=== PATIENT | female | born 1960 | race Two or more races ===

== ENCOUNTER 2017-06-16 11:23 | Emergency (ER) | payer OTHER ==
[~2017-06-16] VITALS: Ht 160 cm; Wt 95.3 kg
[2017-06-16 12:16] LABS: BASOPHILS % (AUTO) 1.5 % (0.0-2.0); EOSINOPHILS % (AUTO) 0.8 % (0.0-3.0); LYMPHOCYTES % (AUTO) 27.4 % (20.0-45.0); MEAN CORPUSCULAR HEMOGLOBIN 29.1 PG (27.0-31.0); MEAN CORPUSCULAR HGB CONC 32.1 G/DL (32.0-36.0); MEAN CORPUSCULAR VOLUME 91 FL (80-99); MEAN PLATELET VOLUME 7.6 FL (6.5-10.1); MONOCYTES % (AUTO) 8.2 % (1.0-10.0); NEUTROPHILS % (AUTO) 62.2 % (45.0-75.0); PLATELET COUNT 207 K/UL (150-450)
[2017-06-16 12:21] LABS: APPEARANCE,URINE CLEAR; KETONES,URINE NEGATIVE (NEGATIVE); LEUKOCYTE ESTERASE ,URINE 1+ (NEGATIVE); NITRITE,URINE NEGATIVE (NEGATIVE); PH,URINE 8 (4.5-8.0); PROTEIN,URINE 1+ (NEGATIVE); UROBILINOGEN,URINE 1 MG/DL (0.0-1.0)
[2017-06-16 12:31] LABS: PROTHROMBIN TIME 10.7 SEC (9.30-11.50)
[2017-06-16 12:36] LABS: ALANINE AMINOTRANSFERASE 53 U/L (3-33); ANION GAP 11 (5-15); ASPARTATE AMINO TRANSFERASE 57 U/L (5-40); CALCIUM 9.7 mg/dL (8.6-10.2); CARBON DIOXIDE 28 mEQ/L (20-30); CHLORIDE 97 mEQ/L (98-107); CREATININE 0.8 mg/dL (0.5-0.9); GLOMERULAR FILTRATION RATE > 60 mL/min (>60); HEMOLYSIS 4; LIPASE 24 U/L (< 60); POTASSIUM 3.1 mEQ/L (3.4-4.9); SODIUM 136 mEQ/L (135-145); TOTAL PROTEIN 8.3 g/dL (6.6-8.7)
[2017-06-16 12:42] LABS: BACTERIA,URINE FEW /HPF; SQUAMOUS EPITHELIAL CELL,UR OCCASIONAL /LPF (NONE/OCC); WBC,URINE 0-2 /HPF (0 - 2)
[2017-06-16] MEDS ORDERED: ATENOLOL25 MG ORAL (12:52)
[2017-06-16] MEDS ORDERED: AMLODIPINE BESYL5 MG ORAL (12:52)
[2017-06-16] MEDS ORDERED: PANTOPRAZOLE SO40 MG ORAL (12:52)
[2017-06-16] MEDS ORDERED: [UNRECOGNIZED DRUG - OTHER] PO (12:53)
[2017-06-16] MEDS ORDERED: ALBUTEROL PO (12:53)
[2017-06-16 13:15] VITALS: BP 155/72
--- NOTE | 2017-06-16 13:19 | Emergency Room Report ---
History of Present Illness General Chief Complaint: Abdominal Pain Source: Patient Present Illness HPI 57-year-old female with history of diabetes and hypertension, presenting with 2 days of bloody diarrhea and generalized abdominal pain. Patient states some nausea but no vomiting. Patient states within 3-4 episodes of bloody diarrhea, brown stool mixed with bright red blood. There is no pain notification. Patient denies any fever chills chest pain shortness of breath or syncopal episodes. Patient states that her last colonoscopy was 3 years ago which showed polyps. Patient states that she takes baby aspirin however not every day. Allergies: Coded Allergies: No Known Allergies (Unverified , 06/16/17) Patient History Past Medical History: see triage record Past Surgical History: none Pertinent Family History: none Last Menstrual Period: 5 years ago Now: No Reviewed Nursing Documentation: PMH: Agreed, PSxH: Agreed Nursing Documentation-PMH Past Medical History: No History, Except For Hx Cardiac Problems: No Hx Hypertension: Yes Hx Pacemaker: No Hx Asthma: Yes Hx COPD: No Hx Diabetes: Yes Hx Cancer: No Hx Gastrointestinal Problems: Yes Hx Dialysis: No History Of Psychiatric Problem: Yes - deperession Hx Neurological Problems: No Hx Cerebrovascular Accident: No Hx Seizures: No Review of Systems All Other Systems: negative except mentioned in HPI Physical Exam Vital Signs Date Time Temp Pulse Resp B/P (MAP) Pulse Ox O2 Delivery O2 Flow Rate FiO2 06/16/17 11:30 98.4 68 15 177/76 96 Room Air Sp02 EP Interpretation: reviewed, normal General Appearance: normal inspection, no apparent distress, alert, GCS 15, non -toxic, other - appears mildly dehydrated Head: normocephalic, atraumatic Eyes: bilateral eye normal inspection, bilateral eye PERRL, bilateral eye EOMI ENT: normal ENT inspection, normal pharynx, normal voice, moist mucus membranes Neck: normal inspection, full range of motion, supple Respiratory: normal inspection, lungs clear, normal breath sounds, no respiratory distress, no retraction, no wheezing, speaking full sentences, chest symmetrical Cardiovascular #1: normal inspection, regular rate, rhythm, no edema, normal capillary refill Cardiovascular #2: 2+ radial (R), 2+ radial (L) Gastrointestinal: normal inspection, non tender, soft, non-distended, no guarding, other - nontender all quadrants Musculoskeletal: normal inspection, back normal, normal range of motion, non- tender Neurologic: normal inspection, alert, oriented x3, responsive, motor strength/ tone normal, sensory intact, normal gait, speech normal Psychiatric: normal inspection, judgement/insight normal, memory normal Skin: normal inspection, normal color, no rash, warm/dry, normal turgor Medical Decision Making Diagnostic Impression: Primary Impression: Bloody diarrhea Additional Impressions: Lower GI bleed Hypokalemia ER Course 57 yo female with bloody diarrhea and abdominal pain Differential Diagnosis: Lower GI bleed Gastritis, gastroenteritis, colitis, appendicitis, diverticulitis, diverticulosis, UTI/pyelo At this time abdomen is soft nontender, not likely to have acute intra- abdominal surgical pathology, will hold CT for now. ciprofloxacin given for possible bacterial diarrhea Plan: Basic labs, ua, coags, ekg Zofran, IVF ER course: Patient has been monitored during ED stay, HD stable. Patient's blood pressure has remained within normal limits. H&H is within normal limits and no transfusion will be done at this time repeat abdominal examinations reveal nontender abdomen, we'll not pursue CT at this time Disposition: Patient is to be admitted to telemetry for lower GI bleeding. Patient will be transferred to outside hospital to to insurance issue. Discussed with the receiving doctor . Patient is hemodynamically stable and is stable for transfer Please note that this Emergency Department Report was dictated using Project WBSplate painter apprentice technology software, occasionally this can lead to erroneous entry secondary to interpretation by the dictation equipment. Laboratory Tests Test 06/16/17 12:00 White Blood Count 7.0 K/UL (4.8-10.8) Red Blood Count 4.70 M/UL (4.20-5.40) Hemoglobin 13.7 G/DL (12.0-16.0) Hematocrit 42.5 % (37.0-47.0) Mean Corpuscular Volume 91 FL (80-99) Mean Corpuscular Hemoglobin 29.1 PG (27.0-31.0) Mean Corpuscular Hemoglobin Concent 32.1 G/DL (32.0-36.0) Red Cell Distribution Width 13.0 % (11.6-14.8) Platelet Count 207 K/UL (150-450) Mean Platelet Volume 7.6 FL (6.5-10.1) Neutrophils (%) (Auto) 62.2 % (45.0-75.0) Lymphocytes (%) (Auto) 27.4 % (20.0-45.0) Monocytes (%) (Auto) 8.2 % (1.0-10.0) Eosinophils (%) (Auto) 0.8 % (0.0-3.0) Basophils (%) (Auto) 1.5 % (0.0-2.0) Prothrombin Time 10.7 SEC (9.30-11.50) Prothrombin Time INR 1.0 (0.9-1.1) PTT 28 SEC (23-33) Urine Color Yellow Urine Appearance Clear Urine pH 8 (4.5-8.0) Urine Specific [place] 1.015 (1.005-1.035) Urine Protein 1+ (NEGATIVE) H Urine Glucose (UA) Negative (NEGATIVE) Urine Ketones Negative (NEGATIVE) Urine Occult Blood 4+ (NEGATIVE) H Urine Nitrite Negative (NEGATIVE) Urine Bilirubin Negative (NEGATIVE) Urine Urobilinogen 1 MG/DL (0.0-1.0) H Urine Leukocyte Esterase 1+ (NEGATIVE) H Urine RBC 10-15 /HPF (0 - 2) H Urine WBC 0-2 /HPF (0 - 2) Urine Squamous Epithelial Cells Occasional /LPF Urine Bacteria Few /HPF (NONE) Sodium Level 136 mEQ/L (135-145) Potassium Level 3.1 mEQ/L (3.4-4.9) L Chloride Level 97 mEQ/L (98-107) L Carbon Dioxide Level 28 mEQ/L (20-30) Anion Gap 11 (5-15) Blood Urea Nitrogen 8 mg/dL (7-23) Creatinine 0.8 mg/dL (0.5-0.9) Estimate Glomerular Filtration Rate > 60 mL/min (>60) Glucose Level 147 mg/dL (74-106) H Calcium Level 9.7 mg/dL (8.6-10.2) Total Bilirubin 1.0 mg/dL (0.0-1.2) Aspartate Amino Transferase (AST) 57 U/L (5-40) H Alanine Aminotransferase (ALT) 53 U/L (3-33) H Alkaline Phosphatase 137 U/L (35-104) H Total Protein 8.3 g/dL (6.6-8.7) Albumin 4.2 g/dL (3.5-5.2) Globulin 4.1 g/dL Albumin/Globulin Ratio 1.0 (1.0-2.7) Lipase 24 U/L (< 60) EKG Diagnostic Results Rate: normal Rhythm: NSR ST Segments: other - prolonged QT ASA given to the pt in ED: No Rhythm Strip Diag. Results EP Interpretation: yes Rate: 70 Rhythm: NSR, no PVC's, no ectopy Last Vital Signs Date Time Temp Pulse Resp B/P (MAP) Pulse Ox O2 Delivery O2 Flow Rate FiO2 06/16/17 11:30 98.4 68 15 177/76 96 Room Air Disposition: XFER SHT-TRM HOSP Condition: Serious Referrals: [facility],REFERR[facility] (PCP) Taya Albarado M.D. Jun 16, 2017 13:19
[2017-06-16] MEDS ORDERED: Ciprofloxacin 500mg tab ORAL ONE (13:30)
[2017-06-16 14:35] VITALS: BP 161/80
[2017-06-16 14:50] VITALS: BP 162/78
== END 2017-06-16 14:58 | disposition short-term general hospital (02) ==
LOC: EDBEDREQSVC 12:34 → EMR 12:41
DX: K92.2 Gastrointestinal hemorrhage, unspecified (principal); E87.6 Hypokalemia; I10 Essential (primary) hypertension; J45.909 Unspecified asthma, uncomplicated; F32.9 Major depressive disorder, single episode, unspecified
CPT/HCPCS: 36415; 80053; 81003; 83690; 85025; 85610; 85730; 86850; 86900; 86901; 93005; 99285; J8499

== ENCOUNTER 2018-03-20 13:19 | Emergency (ER) | payer OTHER ==
[~2018-03-20] VITALS: Ht 162.6 cm; Wt 86.2 kg
[~2018-03-20 13:19] MED LIST: ALBUTEROL PO; AMLODIPINE BESYL5 MG ORAL; ATENOLOL25 MG ORAL; PANTOPRAZOLE SO40 MG ORAL; [UNRECOGNIZED DRUG - OTHER] PO
[2018-03-20 14:18] VITALS: BP 149/73
--- NOTE | 2018-03-20 14:44 | Emergency Room Report ---
History of Present Illness General Chief Complaint: Skin Rash/Abscess Source: Patient, Medical Record Present Illness HPI 58-year-old female presents emergency department complaining of persistent rash generalized on her face 1 month. Patient reports onset was after having nuclear medicine scan over a month ago. Patient reports some mild itching otherwise no other symptoms. Patient states that she also had a itchy lesion on her scalp which responded well to ketoconazole shampoo. Denies lesions/ rashes elsewhere on the body. Denies new medications or body washes or creams. Denies swelling of the lips, tongue , throat or airway. Denies wheezing, or shortness of breath. Denies recent travel, recent illness or ill contacts. denies blisters, oral lesions, or sloughing of the skin. She denies fevers or chills. Allergies: Coded Allergies: No Known Allergies (Unverified , 06/16/17) Patient History Past Medical History: see triage record Past Surgical History: none Pertinent Family History: none Reviewed Nursing Documentation: PMH: Agreed; PSxH: Agreed Nursing Documentation-PMH Past Medical History: No History, Except For Hx Hypertension: Yes Hx Diabetes: Yes Review of Systems All Other Systems: negative except mentioned in HPI Physical Exam Vital Signs Date Time Temp Pulse Resp B/P (MAP) Pulse Ox O2 Delivery O2 Flow Rate FiO2 03/20/18 13:39 98.1 56 18 149/73 95 Room Air 98.1 Sp02 EP Interpretation: reviewed, normal General Appearance: no apparent distress, alert, GCS 15, non-toxic Head: normocephalic, atraumatic ENT: hearing grossly normal, normal voice, other - No swelling of the lips or tongue Neck: full range of motion Respiratory: chest non-tender, lungs clear, normal breath sounds, no respiratory distress, no wheezing, speaking full sentences Cardiovascular #1: regular rate, rhythm, normal capillary refill Musculoskeletal: back normal, gait/station normal, normal range of motion, non- tender Neurologic: alert, oriented x3, responsive, motor strength/tone normal, sensory intact, speech normal, grossly normal Psychiatric: judgement/insight normal Skin: normal color, warm/dry, well hydrated, rash - Discrete scant erythematous papules that elham located across the nasal bridge and zygomatic bones. No blisters, vesicles or pustules noted. Annular hyperpigmented lesion 1 cm in diameter on the right parietal scalp. Lymphatic: no adenopathy Medical Decision Making PA Attestation Dr. Mar is my supervising Physician whom patient management has been discussed with. Diagnostic Impression: Primary Impression: Rash and other nonspecific skin eruption ER Course 58-year-old female presents emergency department complaining of persistent rash generalized on her face 1 month. Patient reports onset was after having nuclear medicine scan over a month ago. Patient reports some mild itching otherwise no other symptoms. Patient states that she also had a itchy lesion on her scalp which responded well to ketoconazole shampoo. Denies lesions/ rashes elsewhere on the body. Denies new medications or body washes or creams. Denies swelling of the lips, tongue , throat or airway. Denies wheezing, or shortness of breath. Denies recent travel, recent illness or ill contacts. denies blisters, oral lesions, or sloughing of the skin. She denies fevers or chills. states she's had the rash on her face for 1 month she notes that onset was after having nuclear medicine testing done. Ddx considered but are not limited to cellulitis, scabies, shingles, varicella, dermatitis, urticaria, eczema, tinea, viral exanthem, SJS Vital signs: are WNL, pt. is afebrile H&PE are most consistent with nonspecific rash, most likely rosecea. No evidence to suggest significant allergic reaction, impending airway compromise or anaphylaxis. Annular lesion on the scalp is consistent with appearance of fungal infection. ORDERS: none required at this time, the diagnosis is clinical ED INTERVENTIONS: None required at this time. DISCHARGE: At this time pt. is stable for d/c to home. Will provide printed patient care instructions, and any necessary prescriptions. Care plan and follow up instructions have been discussed with the patient prior to discharge. Last Vital Signs Date Time Temp Pulse Resp B/P (MAP) Pulse Ox O2 Delivery O2 Flow Rate FiO2 03/20/18 14:18 98.1 56 18 149/73 95 Room Air 98.1 Disposition: HOME, SELF-CARE Condition: Stable Scripts Diphenhydramine Hcl (BENADRYL ALLERGY) 25 Mg Tablet 25 MG PO Q6HR, #10 TAB Prov: Sharda Holt 03/20/18 Ketoconazole (NIZORAL) 120 Ml Shampoo 1 APPLIC TP DAILY, #120 ML Prov: Sharda Holt 03/20/18 Azelaic Acid (AZELEX) 30 Gm Cream..g. 1 APPLIC TP BID, #30 GM Prov: Sharda Holt 03/20/18 Patient Instructions: Rash Additional Instructions: Take medications as directed. Follow up with a FOREST SCIENCE PROFESSOR in 3-5 days, even if your symptoms have resolved. --Please review list of primary care clinics, if you do not already have a primary care provider Return sooner to ED if new symptoms occur, or current symptoms become worse. Do not drink alcohol, drive, or operate heavy machinery while taking Benadryl as this may cause drowsiness. - Please note that this Emergency Department Report was dictated using [employer] supervisor technology software, occasionally this can lead to erroneous entry secondary to interpretation by the dictation equipment. Sharda Holt Mar 20, 2018 14:44
[2018-03-20] MEDS ORDERED: BENADRYL ALLERG25 M1 PO (14:47)
[2018-03-20] MEDS ORDERED: NIZORAL120 ML TP (14:47)
[2018-03-20] MEDS ORDERED: AZELEX30 GM TP (14:47)
[2018-03-20 14:56] VITALS: BP 150/73
== END 2018-03-20 15:00 | disposition home or self-care (01) ==
LOC: EMR 14:56 → MERGE 14:56 → EMR 15:00
DX: R21 Rash and other nonspecific skin eruption (principal); I10 Essential (primary) hypertension; E11.9 Type 2 diabetes mellitus without complications
CPT/HCPCS: 99284

== ENCOUNTER 2018-04-03 13:50 | Emergency (ER) | payer OTHER ==
[~2018-04-03] VITALS: Ht 157.5 cm; Wt 81.6 kg
[~2018-04-03 13:50] MED LIST changes: +AZELEX30 GM TP; +BENADRYL ALLERG25 M1 PO; +NIZORAL120 ML TP
[2018-04-03] MEDS ORDERED: RANITIDINE HCL150 MG ORAL (14:32)
[2018-04-03] MEDS ORDERED: ONDANSETRON ODT4 MG BC (14:32)
[2018-04-03 14:44] VITALS: BP 148/79
--- NOTE | 2018-04-03 15:52 | Emergency Room Report ---
History of Present Illness General Chief Complaint: Nausea, Vomiting, and Diarrhea Source: Patient, Medical Record Present Illness HPI 58-year-old female presents ED complaining of abdominal pain with nausea and vomiting 2 days. History of gastritis. States that she ran out of her medications. Does not recall the medication name. Pain is epigastric, burning , 8 out of 10, nonradiating. Denies chest pain or shortness of breath. Denies fevers or chills. Denies dysuria or hematuria. No other aggravating relieving factors. Denies any other associated symptoms Allergies: Coded Allergies: No Known Allergies (Unverified , 06/16/17) Patient History Past Medical History: DM, HTN Past Surgical History: none Pertinent Family History: none Social History: Denies: smoking, alcohol use, drug use Now: No Immunizations: UTD Reviewed Nursing Documentation: PMH: Agreed; PSxH: Agreed Nursing Documentation-PMH Past Medical History: No History, Except For Hx Cardiac Problems: No Hx Hypertension: Yes Hx Pacemaker: No Hx Asthma: Yes Hx COPD: No Hx Diabetes: Yes Hx Cancer: No Hx Gastrointestinal Problems: Yes Hx Dialysis: No Hx Neurological Problems: No Hx Cerebrovascular Accident: No Hx Seizures: No Review of Systems All Other Systems: negative except mentioned in HPI Physical Exam Vital Signs Date Time Temp Pulse Resp B/P (MAP) Pulse Ox O2 Delivery O2 Flow Rate FiO2 04/03/18 14:00 98.3 58 18 140/71 98 Room Air 98.2 Sp02 EP Interpretation: reviewed, normal General Appearance: no apparent distress, alert, GCS 15, non-toxic Head: normocephalic Eyes: bilateral eye normal inspection, bilateral eye PERRL ENT: normal ENT inspection Neck: normal inspection Respiratory: chest non-tender, lungs clear, normal breath sounds, speaking full sentences Cardiovascular #1: regular rate, rhythm, no edema Gastrointestinal: normal bowel sounds, soft, non-distended, no guarding, no rebound, tenderness - epigastric Rectal: deferred Genitourinary: no CVA tenderness Musculoskeletal: normal inspection Neurologic: alert, oriented x3, responsive, motor strength/tone normal, sensory intact, speech normal Psychiatric: normal inspection Skin: normal inspection Lymphatic: normal inspection Medical Decision Making Diagnostic Impression: Primary Impression: Gastritis Qualified Codes: K29.00 - Acute gastritis without bleeding ER Course Hospital Course 58-year-old F presents to ED with epigastric pain with N/V. differential diagnosis: gastritis, SBO, cholecystits Clinical course Patient placed on stretcher. On cardiac cath lab manager. After initial history, exam reveals a middle-aged female in no acute distress. Abdomen soft. There is some mild tenderness to the epigastric region. No guarding or rebound. No flank pain. Vital stable. Good capillary refill. Mucous membranes moist. Patient given Pepcid and Zofran in ED I feel this is a highly complex case requiring extensive working including EKG/ Rhythm strip, Xray/CT/US, Blood/urine lab work, repeat exams while in ED, and administration of strong opiates/narcotics for pain control, admission to hospital or close patient follow up. Diagnosis - gastritis Stable and discharged to home with prescriptions for Zantac, zofran. Followup with PMD. Return to ED if symptoms recur or worsen Last Vital Signs Date Time Temp Pulse Resp B/P (MAP) Pulse Ox O2 Delivery O2 Flow Rate FiO2 04/03/18 14:44 98.9 61 18 148/79 95 Room Air 98.9 Status: improved Disposition: HOME, SELF-CARE Condition: Stable Scripts Ondansetron Odt* (ZOFRAN ODT*) 4 Mg Tab.rapdis 4 MG BC EVERY 6 HOURS PRN for Nausea & Vomiting, #20 TAB 0 Refills Prov: Db Rios MD 04/03/18 Ranitidine Hcl* (ZANTAC*) 150 Mg Tablet 150 MG ORAL TWICE A DAY, #30 TAB Prov: Db Rios MD 04/03/18 Referrals: [facility],REFERRING (PCP) Patient Instructions: Gastritis, Adult, [id number] Db Rios MD Apr 03, 2018 15:52
== END 2018-04-03 14:43 | disposition home or self-care (01) ==
LOC: EMR 14:28
DX: K29.70 Gastritis, unspecified, without bleeding (principal); I10 Essential (primary) hypertension; J45.909 Unspecified asthma, uncomplicated; E11.9 Type 2 diabetes mellitus without complications
CPT/HCPCS: 99284; J2405

== ENCOUNTER 2018-10-15 14:21 | Emergency (ER) | payer OTHER ==
[~2018-10-15] VITALS: Ht 162.6 cm; Wt 86.2 kg
[~2018-10-15 14:21] MED LIST changes: +ONDANSETRON ODT4 MG BC; +RANITIDINE HCL150 MG ORAL
[2018-10-15 14:31] VITALS: BP 128/67
--- NOTE | 2018-10-15 14:31 | NUR ---
ED Nurse Note: PT WALKED IN TO ER TODAY FROM HOME. AOX4. PT C/O PRODUCTIVE COUGH X 8 DAYS. PT DENIES FEVER OR NASAL CONGESTION. PT DENIES SOB. LUNG SOUNDS CLEAR IN ALL LOBES. NO SIGNS OF RESPIRATORY DISTRESS.
[2018-10-15] MEDS ORDERED: Ipratropium 0.02% Inh Soln 2.5ml UD HHN ONE (14:45)
[2018-10-15] MEDS ORDERED: Albuterol ud Inhalation HHN ONE (14:45)
--- NOTE | 2018-10-15 15:18 | Emergency Room Report ---
History of Present Illness General Chief Complaint: Upper Respiratory Illness Source: Patient Present Illness HPI Patient presents with 8 days of upper respiratory infection symptomatology including cough wheezing sore throat, muscle aches. She may have had fevers at home. She denies any nausea vomiting diarrhea. There is no dysuria. She's been using her inhaler. She has not taken any medication to control fevers today. She had a flu shot. No headache. She denies pain at this time. History of hypertension. No chest pain, palpitations, nausea, vomiting, diarrhea, abdominal pain, depression, visual changes, headache. 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 Last Menstrual Period: menopause Reviewed Nursing Documentation: PMH: Agreed; PSxH: Agreed Nursing Documentation-PMH Past Medical History: No History, Except For Hx Cardiac Problems: No Hx Hypertension: Yes Hx Pacemaker: No Hx Asthma: Yes Hx COPD: No Hx Diabetes: Yes Hx Cancer: No Hx Gastrointestinal Problems: Yes Hx Dialysis: No Hx Neurological Problems: No Hx Cerebrovascular Accident: No Hx Seizures: No Review of Systems All Other Systems: negative except mentioned in HPI Physical Exam Vital Signs Date Time Temp Pulse Resp B/P (MAP) Pulse Ox O2 Delivery O2 Flow Rate FiO2 10/15/18 14:27 98.2 61 18 133/68 95 Room Air Sp02 EP Interpretation: reviewed, normal General Appearance: well appearing, no apparent distress, GCS 15 Head: normocephalic, atraumatic Eyes: bilateral eye normal inspection, bilateral eye PERRL ENT: hearing grossly normal, normal voice, pharyngeal erythema Neck: full range of motion, supple Respiratory: no respiratory distress, speaking full sentences, wheezing, expiration Cardiovascular #1: regular rate, rhythm Cardiovascular #2: 2+ radial (R) Gastrointestinal: normal inspection Genitourinary: no CVA tenderness Musculoskeletal: no calf tenderness Neurologic: alert, oriented x3, normal gait, grossly normal Psychiatric: mood/affect normal Skin: no rash Medical Decision Making Diagnostic Impression: Primary Impression: Exacerbation of asthma Qualified Codes: J45.31 - Mild persistent asthma with (acute) exacerbation Additional Impression: Upper respiratory infection Qualified Codes: J06.9 - Acute upper respiratory infection, unspecified ER Course Patient presents with wheezes cough and possible fever. She has a history of asthma. I differential includes influenza, asthma exacerbation, viral upper respiratory infection. Throat exam is against strep. She'll be treated with albuterol and Atrovent here. Due to the fact it's been 8 days of Tamiflu is not indicated. Influenza swab negative. Patient is improved after breathing treatment. We discussed aftercare. She has an albuterol inhaler which she will use. Patient stable for outpatient observation and treatment. Last Vital Signs Date Time Temp Pulse Resp B/P (MAP) Pulse Ox O2 Delivery O2 Flow Rate FiO2 10/15/18 15:31 98.3 65 17 131/69 99 Room Air Status: improved Disposition: HOME, SELF-CARE Condition: Improved Scripts Guaifenesin/Codeine Phos* (ROBITUSSIN AC*) 118 Ml Liquid 5 ML ORAL Q6H PRN for For Cough, #90 ML 0 Refills Prov: Arden Hernandez MD 10/15/18 Prednisone* (PREDNISONE*) 20 Mg Tablet 40 MG ORAL DAILY, #6 TAB Prov: Arden Hernandez MD 10/15/18 Arden Hernandez MD Oct 15, 2018 15:18
[2018-10-15] MEDS ORDERED: PREDNISONE20 MG ORAL (15:21)
[2018-10-15] MEDS ORDERED: GUAIFENESIN-CO118 M1 ORAL (15:21)
[2018-10-15 15:31] VITALS: BP 131/69
--- NOTE | 2018-10-15 15:32 | NUR ---
ER Nurse Note: PT SITTING PEACEFULLY IN CHAIR IN NAD. AOX4. PRESCRIPTIONS AND DISCHARGE PAPERWORK EXPLAINED TO PT. PT VERBALIZES UNDERSTANDING AND DENIES ANY QUESTIONS AT THIS TIME. PRESCRIPTIONS AND DISCHARGE PAPERWORK GIVEN TO PT AND ID WRISTBAND REMOVED. PT WALKED OUT OF ER WITH STEADY GAIT WITH ALL BELONGINGS.
== END 2018-10-15 15:30 | disposition home or self-care (01) ==
LOC: EMR 14:57
DX: J45.31 Mild persistent asthma with (acute) exacerbation (principal); J06.9 Acute upper respiratory infection, unspecified; I10 Essential (primary) hypertension; J45.909 Unspecified asthma, uncomplicated; E11.9 Type 2 diabetes mellitus without complications
CPT/HCPCS: 86710; 94640; 94664; 99284

== ENCOUNTER 2018-11-05 12:26 | Emergency (ER) | payer OTHER ==
[~2018-11-05] VITALS: Ht 162.6 cm; Wt 90.7 kg
[~2018-11-05 12:26] MED LIST changes: +GUAIFENESIN-CO118 M1 ORAL; +PREDNISONE20 MG ORAL
[2018-11-05 13:45] VITALS: BP 154/76
--- NOTE | 2018-11-05 13:45 | NUR ---
ED Nurse Note: PT WALKED IN TO ER TODAY FROM HOME. AOX4. PT C/O REDNESS TO RIGHT EYE X 5 DAYS AGO. PT C/O MINIMAL PAIN, 1/10 AND SOME ITCHING. SCLERA APPEARS RED BUT NO DISCHARGE. PT DENIES ANY VISION CHANGES. VA OD: 20/50- VA OS: 20/40-
--- NOTE | 2018-11-05 13:53 | Emergency Room Report ---
History of Present Illness General Chief Complaint: Eye Problems Source: Patient Present Illness HPI 58-year-old female with no significant past medical history here complaining of minimal pain and pruritus in the right eye 3 days with copious amount of yellow discharge. Patient denies eye trauma, blurred vision, and pain in her. Orbital area. Denies all other URI symptoms, fever or chills. Genitourinary the pain 2 out of 10. She uses a lot of eye makeup aand denied photophobia Allergies: Coded Allergies: No Known Allergies (Unverified , 06/16/17) Patient History Past Medical History: see triage record Past Surgical History: unable to obtain Pertinent Family History: none Last Menstrual Period: na Now: No Reviewed Nursing Documentation: PMH: Agreed; PSxH: Agreed Nursing Documentation-PMH Past Medical History: No History, Except For Hx Cardiac Problems: No Hx Hypertension: Yes Hx Pacemaker: No Hx Asthma: Yes Hx COPD: No Hx Diabetes: Yes Hx Cancer: No Hx Gastrointestinal Problems: Yes Hx Dialysis: No Hx Neurological Problems: No Hx Cerebrovascular Accident: No Hx Seizures: No Review of Systems All Other Systems: negative except mentioned in HPI Physical Exam Vital Signs Date Time Temp Pulse Resp B/P (MAP) Pulse Ox O2 Delivery O2 Flow Rate FiO2 11/05/18 12:44 97.9 54 18 166/75 98 Room Air Sp02 EP Interpretation: reviewed, normal General Appearance: normal inspection, well appearing Head: normocephalic Eyes: right eye other - bacterial conjunctivitis with copious amount of yellow discharge in the right eye, no corneal ulcer observed; bilateral eye PERRL ENT: normal ENT inspection, hearing grossly normal, normal pharynx Neck: normal inspection, full range of motion, supple Respiratory: normal inspection, chest non-tender, lungs clear, no wheezing Cardiovascular #1: normal inspection, regular rate, rhythm, no murmur Gastrointestinal: normal inspection, non tender, soft Rectal: deferred Genitourinary: deferred Musculoskeletal: normal inspection, back normal, digits/nails normal Neurologic: normal inspection, alert, oriented x3 Psychiatric: normal inspection, judgement/insight normal, memory normal Skin: normal inspection, normal color, no rash, warm/dry Lymphatic: normal inspection, no adenopathy Medical Decision Making PA Attestation all diagnosis and treatment plans were reviewed and discussed with my supervising physician Dr. Rios Diagnostic Impression: Primary Impression: Bacterial conjunctivitis ER Course 58-year-old female with no significant past medical history here complaining of minimal pain and pruritus in the right eye 3 days with copious amount of yellow discharge. Patient denies eye trauma, blurred vision, and pain in her. Orbital area. Denies all other URI symptoms, fever or chills. Genitourinary the pain 2 out of 10. She uses a lot of eye makeup aand denied photophobia Ddx considered but are not limited to bacterial conjunctivitis, corneal ulcer, allergic conjunctivitis Vital signs: are WNL, pt. is afebrile H&PE are most consistent with bacterial conjunctivitis ORDERS:ofloxacin eyedrops, loratadine ED INTERVENTIONS: None required at this time. DISCHARGE: At this time pt. is stable for d/c to home. Will provide printed patient care instructions, and any necessary prescriptions. Care plan and follow up instructions have been discussed with the patient prior to discharge. avoid wearing eye makeup, change pillowcases, follow with an machining manager if symptoms continue Last Vital Signs Date Time Temp Pulse Resp B/P (MAP) Pulse Ox O2 Delivery O2 Flow Rate FiO2 11/05/18 12:44 97.9 54 18 166/75 98 Room Air Disposition: HOME, SELF-CARE Condition: Stable Scripts Loratadine (LORATADINE) 10 Mg Tablet 10 MG PO DAILY, #20 TAB Prov: Sam Burgos 11/05/18 Ofloxacin (Ofloxacin) 5 Ml Drops 2 DROP OP QID, #5 ML Prov: Sam Burgos 11/05/18 Patient Instructions: Bacterial Conjunctivitis, [id number] Sam Burgos Nov 05, 2018 13:53
[2018-11-05] MEDS ORDERED: OFLOXACIN10 ML OP (13:56)
[2018-11-05] MEDS ORDERED: LORATADINE10 M2 PO (13:56)
[2018-11-05 14:12] VITALS: BP 148/74
--- NOTE | 2018-11-05 14:13 | NUR ---
ED Nurse Note: PT SITTING PEACEFULLY IN CHAIR IN NAD. AOX4. PRESCRIPTIONS AND DISCHARGE PAPERWORK EXPLAINED TO PT. PT VERBALIZES UNDERSTANDING AND ALL QUESTIONS ANSWERED. PRESCRIPTIONS AND DISCHARGE PAPERWORK GIVEN TO PT AND ID WRISTBAND REMOVED. PT WALKED OUT OF ER WITH STEADY GAIT AND ALL BELONGINGS.
== END 2018-11-05 14:13 | disposition home or self-care (01) ==
LOC: EMR 13:30
DX: H10.9 Unspecified conjunctivitis (principal); I10 Essential (primary) hypertension; E11.9 Type 2 diabetes mellitus without complications
CPT/HCPCS: 99282

== ENCOUNTER 2019-03-17 11:58 | Inpatient (IN) | payer OTHER ==
[~2019-03-17] VITALS: Ht 160 cm; Wt 90.3 kg
[~2019-03-17 11:58] MED LIST changes: +LORATADINE10 M2 PO; +OFLOXACIN10 ML OP
[2019-03-17] MEDS ORDERED: UNOBMED (12:03)
--- NOTE | 2019-03-17 12:04 | NUR ---
ED Nurse Note: pt walked in to ER c/o abdominal pain 5/10 and N/V for 3 days with saliva. pt aao x4 and ambulatory. calm and cooperative. skin clean and intact. not vomiting at this moment.
[2019-03-17 12:15] VITALS: BP 149/65
--- NOTE | 2019-03-17 12:15 | Emergency Room Report ---
History of Present Illness General Chief Complaint: Abdominal Pain Source: Patient, Medical Record Present Illness HPI Patient presented with complaints of vomiting diarrhea ongoing for the past 3 days Denies any chest pain she does complain of left upper mid abdominal pain denies any blood in the stool Denies any recent travel denies any other sick contacts denies any neck pain or photophobia denies any obvious fevers patient is not able to keep down much oral intake and presents to the ER Denies any rash or new medications Allergies: Coded Allergies: No Known Allergies (Unverified , 06/16/17) Patient History Past Medical History: see triage record Pertinent Family History: none Reviewed Nursing Documentation: PMH: Agreed; PSxH: Agreed Nursing Documentation-PMH Past Medical History: No History, Except For Hx Cardiac Problems: No Hx Hypertension: Yes Hx Pacemaker: No Hx Asthma: Yes Hx COPD: No Hx Diabetes: Yes Hx Cancer: No Hx Gastrointestinal Problems: Yes Hx Dialysis: No Hx Neurological Problems: No Hx Cerebrovascular Accident: No Hx Seizures: No Review of Systems All Other Systems: negative except mentioned in HPI Physical Exam Vital Signs Date Time Temp Pulse Resp B/P (MAP) Pulse Ox O2 Delivery O2 Flow Rate FiO2 03/17/19 12:01 98.2 89 16 148/78 (101) 95 Room Air Sp02 EP Interpretation: reviewed, normal General Appearance: well appearing, no apparent distress Head: normocephalic, atraumatic Eyes: bilateral eye PERRL, bilateral eye EOMI ENT: hearing grossly normal, normal pharynx, TMs + canals normal, uvula midline Neck: full range of motion, supple, no meningismus, no bony tend Respiratory: lungs clear, normal breath sounds, no rhonchi, no respiratory distress, no retraction, no accessory muscle use Cardiovascular #1: normal peripheral pulses, regular rate, rhythm, no edema, no gallop, no JVD, no murmur Gastrointestinal: normal bowel sounds, non tender, soft, no mass, no organomegaly, non-distended, no guarding, no hernia, no pulsatile mass, no rebound Genitourinary: no CVA tenderness Musculoskeletal: normal inspection Neurologic: oriented x3, responsive, branch rental manager III-XII nml as tested, motor strength/ tone normal, sensory intact Psychiatric: mood/affect normal Skin: normal color, no rash, warm/dry, palpation normal Lymphatic: normal inspection, no adenopathy Medical Decision Making Diagnostic Impression: Primary Impression: Persistent vomiting ER Course With the history exam and presentation, multiple differentials considered, including but not limited to appendicitis, gastritis, cholecystitis, diverticulitis Patient shows some signs of dehydration at this time also showing elevation of liver function test Patient has persistently increased nausea vomiting not tolerating oral intake after initial attempt and requires further inpatient care Labs Test 03/17/19 12:26 White Blood Count 4.6 K/UL (4.8-10.8) Red Blood Count 4.84 M/UL (4.20-5.40) Hemoglobin 12.5 G/DL (12.0-16.0) Hematocrit 39.4 % (37.0-47.0) Mean Corpuscular Volume 81 FL (80-99) Mean Corpuscular Hemoglobin 25.8 PG (27.0-31.0) Mean Corpuscular Hemoglobin Concent 31.7 G/DL (32.0-36.0) Red Cell Distribution Width 22.4 % (11.6-14.8) Platelet Count 116 K/UL (150-450) Mean Platelet Volume 8.0 FL (6.5-10.1) Neutrophils (%) (Auto) 79.8 % (45.0-75.0) Lymphocytes (%) (Auto) 12.4 % (20.0-45.0) Monocytes (%) (Auto) 6.1 % (1.0-10.0) Eosinophils (%) (Auto) 0.1 % (0.0-3.0) Basophils (%) (Auto) 1.6 % (0.0-2.0) Sodium Level 136 MMOL/L (136-145) Potassium Level 3.4 MMOL/L (3.5-5.1) Chloride Level 100 MMOL/L (98-107) Carbon Dioxide Level 28 MMOL/L (21-32) Anion Gap 8 mmol/L (5-15) Blood Urea Nitrogen 7 mg/dL (7-18) Creatinine 0.6 MG/DL (0.55-1.30) Estimat Glomerular Filtration Rate > 60 mL/min (>60) Glucose Level 151 MG/DL (74-106) Calcium Level 9.4 MG/DL (8.5-10.1) Total Bilirubin 2.4 MG/DL (0.2-1.0) Direct Bilirubin 0.9 MG/DL (0.0-0.3) Aspartate Amino Transf (AST/SGOT) 116 U/L (15-37) Alanine Aminotransferase (ALT/SGPT) 47 U/L (12-78) Alkaline Phosphatase 165 U/L (46-116) Total Protein 8.5 G/DL (6.4-8.2) Albumin 3.2 G/DL (3.4-5.0) Globulin 5.3 g/dL Albumin/Globulin Ratio 0.6 (1.0-2.7) Lipase 131 U/L (73-393) CT/MRI/US Diagnostic Results CT/MRI/US Diagnostic Results : Impression CT abdomen pelvisIMPRESSION: 1. No acute findings in the abdomen or pelvis. No bowel obstruction or bowel wall thickening. No obstructive uropathy. 2. 3.6 cmsimple-appearing right ovarian cyst. ACR White Paper guidelines (Thien , et. al. JACR 2013; 10(9):675-681) suggest pelvic ultrasound follow-up in 6-12weeks. 3. Small bilateral fat-containing inguinal hernias. 4. Status post cholecystectomy. 5. Diffuselyhypodense liver, suggesting fattyinfiltration. Last Vital Signs Date Time Temp Pulse Resp B/P (MAP) Pulse Ox O2 Delivery O2 Flow Rate FiO2 03/17/19 12:01 98.2 89 16 148/78 (101) 95 Room Air Status: improved Disposition: ADMITTED INPATIENT Condition: Serious Joan Soriano DO Mar 17, 2019 12:15
[2019-03-17 12:41] LABS: BASOPHILS % (AUTO) 1.6 % (0.0-2.0); EOSINOPHILS % (AUTO) 0.1 % (0.0-3.0); HEMATOCRIT 39.4 % (37.0-47.0); HEMOGLOBIN 12.5 G/DL (12.0-16.0); LYMPHOCYTES % (AUTO) 12.4 % (20.0-45.0); MEAN CORPUSCULAR VOLUME 81 FL (80-99); MONOCYTES % (AUTO) 6.1 % (1.0-10.0); NEUTROPHILS % (AUTO) 79.8 % (45.0-75.0); PLATELET COUNT 116 K/UL (150-450); RED BLOOD COUNT 4.84 M/UL (4.20-5.40); RED CELL DISTRIBUTION WIDTH 22.4 % (11.6-14.8); WHITE BLOOD COUNT 4.6 K/UL (4.8-10.8)
[2019-03-17 12:54] LABS: ANION GAP 8 mmol/L (5-15); BLOOD UREA NITROGEN 7 mg/dL (7-18); CALCIUM 9.4 MG/DL (8.5-10.1); CARBON DIOXIDE 28 MMOL/L (21-32); CHLORIDE 100 MMOL/L (98-107); CREATININE 0.6 MG/DL (0.55-1.30); POTASSIUM 3.4 MMOL/L (3.5-5.1); SODIUM 136 MMOL/L (136-145)
[2019-03-17 13:04] LABS: ALANINE AMINOTRANSFERASE 47 U/L (12-78); ALBUMIN 3.2 G/DL (3.4-5.0); ALBUMIN/GLOBULIN RATIO 0.6 (1.0-2.7); ALKALINE PHOSPHATASE 165 U/L (46-116); ASPARTATE AMINO TRANSFERASE 116 U/L (15-37); BILIRUBIN,TOTAL 2.4 MG/DL (0.2-1.0)
[2019-03-17 13:06] LABS: BILIRUBIN,DIRECT 0.9 MG/DL (0.0-0.3)
--- NOTE | 2019-03-17 13:38 | Diagnostic Imaging Report ---
EXAM: CT Abdomen and Pelvis Without Intravenous Contrast CLINICAL HISTORY: PAIN TECHNIQUE: Axial computed tomography images of the abdomen and pelvis without intravenous contrast. CTDI is 18.55 mGy and DLP is 957 mGy-cm. One or more of the following dose reduction techniques were used: automated exposure control, adjustment of the mA and/or kV according to patient size, use of iterative reconstruction technique. Coronal and sagittal reformatted images were created and reviewed. COMPARISON: No relevant prior studies available. FINDINGS: Lung bases: Unremarkable. No consolidation. No effusions. ABDOMEN: Liver: Diffusely hypodense liver, suggesting fatty infiltration. Gallbladder and bile ducts: Status post cholecystectomy. No ductal dilation. Pancreas: Unremarkable. No ductal dilation. Spleen: Unremarkable. No splenomegaly. Adrenals: Unremarkable. No mass. Kidneys and ureters: Unremarkable. No obstructing stones. No hydronephrosis. Stomach and bowel: Unremarkable. No obstruction. No mucosal thickening. PELVIS: Appendix: No findings to suggest acute appendicitis. Bladder: Unremarkable. No stones. Reproductive: 3.6 cm simple appearing right ovarian cyst. Otherwise unremarkable noncontrast appearance. ABDOMEN and PELVIS: Intraperitoneal space: Unremarkable. No free air. No significant fluid collection. Bones/joints: No acute fracture. No dislocation. Soft tissues: Small bilateral fat-containing inguinal hernias. Vasculature: Atherosclerosis throughout the abdominal aorta and its proximal branches. No abdominal aortic aneurysm. Lymph nodes: Unremarkable. No enlarged lymph nodes. Tubes, lines and devices: Radiodense calcifications versus clips identified adjacent to bilateral uterine tube regions. IMPRESSION: 1. No acute findings in the abdomen or pelvis. No bowel obstruction or bowel wall thickening. No obstructive uropathy. 2. 3.6 cm simple-appearing right ovarian cyst. ACR White Paper guidelines (Thien, et. al. JACR 2013; 10(9):675-681) suggest pelvic ultrasound follow-up in 6-12 weeks. 3. Small bilateral fat-containing inguinal hernias. 4. Status post cholecystectomy. 5. Diffusely hypodense liver, suggesting fatty infiltration.
[2019-03-17 14:15] VITALS: BP 151/72
--- NOTE | 2019-03-17 15:12 | NUR ---
ED Nurse Note: pt requested water. pt was provided ice cubes.
[2019-03-17 16:15] VITALS: BP 144/75
[2019-03-17 17:48] VITALS: BP 152/78
--- NOTE | 2019-03-17 18:55 | NUR ---
ED Nurse Note: per ERMD, pt is ok to eat if pt does not vomit after she drinks clear liquid.
--- NOTE | 2019-03-17 19:10 | NUR ---
HAND-OFF: Report given to NAYELY Malhotra. report needs to be given. belonging list ready. no orders to carry at this moment.
--- NOTE | 2019-03-17 19:17 | NUR ---
ED Nurse Note: Received report from Colt Gonzalez RN. Pt in bed awake, talking on cell phone. Introductions made. No distress noted. Awaiting daughter's return with food compliant with TAMI KESSLER's orders. Will continue to monitor. Addendum: 03/17/19 at 1918 by BONNIE Also will give report to med/surg unit at assigned time of 193.
[2019-03-17 19:30] VITALS: BP 148/72
--- NOTE | 2019-03-17 20:20 | NUR ---
NURSE NOTES: Received report from TAMI Padilla RN.
--- NOTE | 2019-03-17 20:50 | NUR ---
NURSE NOTES: Patient admitted to room 312-1. Steady gait while transferring to bed. Patient in stable condition. Bed in low position, locked, side rails up x2, call light within reach. Alert and oriented x4. Czech-speaking. Family member visiting at bedside. Denies pain or nausea at this time. Saline lock, intact in LAC. Will continue to monitor.
[2019-03-17 21:00] VITALS: BP 145/72
--- NOTE | 2019-03-17 21:35 | History & Physical ---
History and Physical History & Physicial History and Physical HPI Patient ia a 59 year old woman who presented complaining of vomiting diarrhea ongoing for the past 3 days Denies any chest pain she does complain of left upper mid abdominal pain denies any blood in the stool Denies any recent travel denies any other sick contacts denies any neck pain or photophobia denies any obvious fevers patient is not able to keep down much oral intake Denies any rash or new medications Allergies: No Known Allergies Past Medical History: Hypertension, Asthma, Gastritis All Other Systems: negative except mentioned in HPI Physical Exam Vital Signs Noted Date Time Temp Pulse Resp B/P (MAP) Pulse Ox O2 Delivery O2 Flow Rate FiO2 03/17/19 12:01 98.2 89 16 148/78 (101) 95 Room Air General Appearance: well appearing, no apparent distress Head: normocephalic, atraumatic Eyes: bilateral eye PERRL, bilateral eye EOMI ENT: hearing grossly normal, normal pharynx, TMs + canals normal, uvula midline Neck: full range of motion, supple, no meningismus, no bony tend Respiratory: lungs clear, normal breath sounds, no rhonchi, no respiratory distress, no retraction, no accessory muscle use Cardiovascular: normal peripheral pulses, HS1and HS2, normal, regular rate, rhythm, no edema, no gallop, no JVD, no murmur Gastrointestinal: normal bowel sounds, non tender, soft, no mass, no organomegaly, non-distended, no guarding, no hernia, no pulsatile mass, no rebound Genitourinary: no CVA tenderness Musculoskeletal: normal inspection Neurologic: oriented x3, responsive, timekeeping supervisor III-XII nml as tested, motor strength/ tone normal, sensory intact Psychiatric: mood/affect normal Skin: normal color, no rash, warm/dry, palpation normal Lymphatic: normal inspection, no adenopathy Impression: Persistent vomiting Asthma Hypertension Previous Gastritis Plan: IV fluids Zofran/Ativan PRN Protonix Wean Steroids HHN Budesonide Monitor labs PPX 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 Labs Test 03/17/19 12:26 White Blood Count 4.6 K/UL (4.8-10.8) Red Blood Count 4.84 M/UL (4.20-5.40) Hemoglobin 12.5 G/DL (12.0-16.0) Hematocrit 39.4 % (37.0-47.0) Mean Corpuscular Volume 81 FL (80-99) Mean Corpuscular Hemoglobin 25.8 PG (27.0-31.0) Mean Corpuscular Hemoglobin Concent 31.7 G/DL (32.0-36.0) Red Cell Distribution Width 22.4 % (11.6-14.8) Platelet Count 116 K/UL (150-450) Mean Platelet Volume 8.0 FL (6.5-10.1) Neutrophils (%) (Auto) 79.8 % (45.0-75.0) Lymphocytes (%) (Auto) 12.4 % (20.0-45.0) Monocytes (%) (Auto) 6.1 % (1.0-10.0) Eosinophils (%) (Auto) 0.1 % (0.0-3.0) Basophils (%) (Auto) 1.6 % (0.0-2.0) Sodium Level 136 MMOL/L (136-145) Potassium Level 3.4 MMOL/L (3.5-5.1) Chloride Level 100 MMOL/L (98-107) Carbon Dioxide Level 28 MMOL/L (21-32) Anion Gap 8 mmol/L (5-15) Blood Urea Nitrogen 7 mg/dL (7-18) Creatinine 0.6 MG/DL (0.55-1.30) Estimat Glomerular Filtration Rate > 60 mL/min (>60) Glucose Level 151 MG/DL (74-106) Calcium Level 9.4 MG/DL (8.5-10.1) Total Bilirubin 2.4 MG/DL (0.2-1.0) Direct Bilirubin 0.9 MG/DL (0.0-0.3) Aspartate Amino Transf (AST/SGOT) 116 U/L (15-37) Alanine Aminotransferase (ALT/SGPT) 47 U/L (12-78) Alkaline Phosphatase 165 U/L (46-116) Total Protein 8.5 G/DL (6.4-8.2) Albumin 3.2 G/DL (3.4-5.0) Globulin 5.3 g/dL Albumin/Globulin Ratio 0.6 (1.0-2.7) Lipase 131 U/L (73-393) CT Abdomen 1. No acute findings in the abdomen or pelvis. No bowel obstruction or bowel wall thickening. No obstructive uropathy. 2. 3.6 cmsimple-appearing right ovarian cyst. ACR White Paper guidelines (Neumann , et. al. JACR 2013; 10(9):675-681) suggest pelvic ultrasound follow-up in 6-12weeks. 3. Small bilateral fat-containing inguinal hernias. 4. Status post cholecystectomy. 5. Diffuselyhypodense liver, suggesting fattyinfiltration. Arden Mckeon MD Mar 17, 2019 21:35
[2019-03-17] MEDS ORDERED: guaiFENesin 100mg/5ml Liq ud ORAL PRN (23:00)
[2019-03-17] MEDS ORDERED: Hydromorphone 0.5mg/0.5ml inj IVP PRN (23:00)
[2019-03-17] MEDS: D5NS 1,000 ML IV SCH (23:00)
--- NOTE | 2019-03-17 23:00 | NUR ---
NURSE NOTES: Dr Mckeon here to see patient. OK to have clear liquids in AM if no nausea/vomiting overnight.
[2019-03-17] MEDS ORDERED: LORazepam Inj 2mg/ml 1ml IV PRN (23:15)
[2019-03-17] MEDS ORDERED: KETOCONAZOLE 2% TOPIC PRN (23:15)
[2019-03-17] MEDS ORDERED: Albuterol/Ipratropium 3ml neb HHN PRN (23:15)
[2019-03-18 00:20] VITALS: BP 145/72
[2019-03-18 04:30] VITALS: BP 146/81
[2019-03-18] MEDS: NovoLOG Insulin Flexpen SUBQ SCH ×4 (06:25→20:36)
[2019-03-18 07:11] LABS: BASOPHILS % (AUTO) 1.4 % (0.0-2.0); EOSINOPHILS % (AUTO) 0.6 % (0.0-3.0); HEMATOCRIT 35.6 % (37.0-47.0); HEMOGLOBIN 11.4 G/DL (12.0-16.0); LYMPHOCYTES % (AUTO) 23.9 % (20.0-45.0); MEAN CORPUSCULAR VOLUME 82 FL (80-99); MONOCYTES % (AUTO) 7.7 % (1.0-10.0); NEUTROPHILS % (AUTO) 66.5 % (45.0-75.0); PLATELET COUNT 101 K/UL (150-450); RED BLOOD COUNT 4.34 M/UL (4.20-5.40); RED CELL DISTRIBUTION WIDTH 22.1 % (11.6-14.8); WHITE BLOOD COUNT 4.3 K/UL (4.8-10.8)
--- NOTE | 2019-03-18 07:30 | NUR ---
HAND-OFF: Report given to NAYELY Villarreal.
--- NOTE | 2019-03-18 07:45 | NUR ---
NURSE NOTES: Report received from Kary ADLER, rounds made. Patient resting in semi-fowlers position in bed. Luxembourgish speaking. No distress on RA, denies pain or NV. IVF D5 NS at 100 ml/hr infusing to LAC, as ordered, site asymptomatic. Reinforced call light for safety measures. Tolerated clear liquid diet breakfast. Abdomen soft, round, distended, BS hypoactive. No s/s of hypo/hyperglycemia. Bed in lowest position, will continue to monitor.
[2019-03-18 08:00] VITALS: BP 154/76
--- NOTE | 2019-03-18 08:08 | NUR ---
NURSE NOTES: _Clarification of med list- Once again clarified with patient that she has been taking Prednisone recently. She is NOT using Ofloxacin drops anymore. She is NOT using Azelex Cream either.
[2019-03-18 08:34] LABS: ALANINE AMINOTRANSFERASE 41 U/L (12-78); ALBUMIN 2.7 G/DL (3.4-5.0); ALBUMIN/GLOBULIN RATIO 0.6 (1.0-2.7); ALKALINE PHOSPHATASE 137 U/L (46-116); ANION GAP 9 mmol/L (5-15); ASPARTATE AMINO TRANSFERASE 94 U/L (15-37); BILIRUBIN,DIRECT 0.8 MG/DL (0.0-0.3); BILIRUBIN,TOTAL 2.1 MG/DL (0.2-1.0); BLOOD UREA NITROGEN 8 mg/dL (7-18); CALCIUM 8.9 MG/DL (8.5-10.1); CARBON DIOXIDE 26 MMOL/L (21-32); CHLORIDE 106 MMOL/L (98-107); CREATININE 0.6 MG/DL (0.55-1.30); SODIUM 141 MMOL/L (136-145)
[2019-03-18] MEDS: Heparin 5000 units/ml inj SUBQ SCH ×2 (09:00→20:38)
[2019-03-18] MEDS: D5NS 1,000 ML IV SCH ×2 (09:33→19:00)
--- NOTE | 2019-03-18 10:00 | NUR ---
NURSE NOTES: Dr. Ortega and Dr. Mckeon notified of AM lab results, WBC 4.3, Platelets 101 (okay to hold Heparin today, Venous Duplex scan to BLE, if negative then apply SCD to BLE), K 3.0 (order received for 40 KCL IV and repeat BMP after KCL infused), AST 94, Alkaline Phosphate 137. Dr. Mora notified of above labs as well, diet advanced to [facility]. Will continue to monitor.
[2019-03-18] MEDS: Budesonide HHN 0.25mg/2ml ud HHN SCH ×2 (10:24→22:44)
[2019-03-18 12:00] VITALS: BP 142/53
[2019-03-18 16:14] VITALS: BP 150/79
[2019-03-18 16:15] LABS: ANION GAP 7 mmol/L (5-15); BLOOD UREA NITROGEN 6 mg/dL (7-18); CALCIUM 8.9 MG/DL (8.5-10.1); CARBON DIOXIDE 26 MMOL/L (21-32); CHLORIDE 104 MMOL/L (98-107); CREATININE 0.6 MG/DL (0.55-1.30); POTASSIUM 3.9 MMOL/L (3.5-5.1); SODIUM 137 MMOL/L (136-145)
--- NOTE | 2019-03-18 18:01 | Consultation ---
DATE OF CONSULTATION: 03/18/2019 GASTROLOGY CONSULTATION CHIEF COMPLAINT: I was asked to see this patient by Dr. Mao Ortega for evaluation of gastrointestinal symptoms. HISTORY OF PRESENT ILLNESS: The patient is a pleasant 59-year-old woman, who comes into the hospital with a 3-day history of abdominal pain, nausea, vomiting, and also diarrhea. The pain was predominantly left-sided. The patient states that since she has been admitted, her symptoms have all disappeared and she feels back at her baseline. She has been tolerating her oral diet and wants to be advanced to regular solids. She has had no more diarrhea and her abdominal pain has also subsided. 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 PAST MEDICAL HISTORY: History of thyroid disease and cirrhosis per the patient's recall, hypertension, asthma, and gastritis. FAMILY HISTORY: Noncontributory. SOCIAL HISTORY: The patient lives in [facility] and she is in descent. She drinks 1 glass of wine a week. REVIEW OF SYSTEMS: Otherwise negative. PHYSICAL EXAMINATION: GENERAL: This is a pleasant woman, seen in her room. HEENT: Normocephalic and atraumatic. Sclerae anicteric. Oropharynx clear. NECK: Supple. CHEST: Clear to auscultation. CARDIOVASCULAR: Revealed a regular rate. ABDOMEN: Soft and nontender. EXTREMITIES: Revealed no edema. LABORATORY DATA: Reviewed and they are notable mainly for liver test abnormalities. ASSESSMENT: This patient has acute presentation of nausea, vomiting, diarrhea, and abdominal pain that have all resolved and may have been due to a typical case of viral gastroenteritis, which is treated conservatively. As such, I will advance her diet to regular and she can be discharged if stable. Her liver tests appeared to be chronic per the patient's recall and should be followed as an outpatient by her primary gastrointestinal team. RECOMMENDATIONS: Per above discussion and per orders written in the chart. Thank you for asking me to participate in the care of this patient. Lalo Mora M.D. DR: COLIN JOB#: [id number] CC:
--- NOTE | 2019-03-18 18:56 | Pulmonology Progress Note ---
Assessment/Plan Assessment/Plan Progress Note HPI Patient ia a 59 year old woman who presented complaining of vomiting diarrhea ongoing for the past 3 days Denies any chest pain she does complain of left upper mid abdominal pain denies any blood in the stool Denies any recent travel denies any other sick contacts denies any neck pain or photophobia denies any obvious fevers patient is not able to keep down much oral intake Denies any rash or new medications Allergies: No Known Allergies Past Medical History: Hypertension, Asthma, Gastritis All Other Systems: negative except mentioned in HPI Physical Exam Vital Signs Noted General Appearance: well appearing, no apparent distress Head: normocephalic, atraumatic Eyes: bilateral eye PERRL, bilateral eye EOMI ENT: hearing grossly normal, normal pharynx, TMs + canals normal, uvula midline Neck: full range of motion, supple, no meningismus, no bony tend Respiratory: lungs clear, normal breath sounds, no rhonchi, no respiratory distress, no retraction, no accessory muscle use Cardiovascular: normal peripheral pulses, HS1and HS2, normal, regular rate, rhythm, no edema, no gallop, no JVD, no murmur Gastrointestinal: normal bowel sounds, non tender, soft, no mass, no organomegaly, non-distended, no guarding, no hernia, no pulsatile mass, no rebound Genitourinary: no CVA tenderness Musculoskeletal: normal inspection Neurologic: oriented x3, responsive, 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, motor strength/ tone normal, sensory intact Psychiatric: mood/affect normal Skin: normal color, no rash, warm/dry, palpation normal Lymphatic: normal inspection, no adenopathy Impression: Persistent vomiting Asthma Hypertension Previous Gastritis Plan: IV fluids Zofran/Ativan PRN Protonix Wean Steroids HHN Budesonide Monitor labs PPX GI referral, advancing diet FI[employer] meds Labs Test 03/17/19 12:26 White Blood Count 4.6 K/UL (4.8-10.8) Red Blood Count 4.84 M/UL (4.20-5.40) Hemoglobin 12.5 G/DL (12.0-16.0) Hematocrit 39.4 % (37.0-47.0) Mean Corpuscular Volume 81 FL (80-99) Mean Corpuscular Hemoglobin 25.8 PG (27.0-31.0) Mean Corpuscular Hemoglobin Concent 31.7 G/DL (32.0-36.0) Red Cell Distribution Width 22.4 % (11.6-14.8) Platelet Count 116 K/UL (150-450) Mean Platelet Volume 8.0 FL (6.5-10.1) Neutrophils (%) (Auto) 79.8 % (45.0-75.0) Lymphocytes (%) (Auto) 12.4 % (20.0-45.0) Monocytes (%) (Auto) 6.1 % (1.0-10.0) Eosinophils (%) (Auto) 0.1 % (0.0-3.0) Basophils (%) (Auto) 1.6 % (0.0-2.0) Sodium Level 136 MMOL/L (136-145) Potassium Level 3.4 MMOL/L (3.5-5.1) Chloride Level 100 MMOL/L (98-107) Carbon Dioxide Level 28 MMOL/L (21-32) Anion Gap 8 mmol/L (5-15) Blood Urea Nitrogen 7 mg/dL (7-18) Creatinine 0.6 MG/DL (0.55-1.30) Estimat Glomerular Filtration Rate > 60 mL/min (>60) Glucose Level 151 MG/DL (74-106) Calcium Level 9.4 MG/DL (8.5-10.1) Total Bilirubin 2.4 MG/DL (0.2-1.0) Direct Bilirubin 0.9 MG/DL (0.0-0.3) Aspartate Amino Transf (AST/SGOT) 116 U/L (15-37) Alanine Aminotransferase (ALT/SGPT) 47 U/L (12-78) Alkaline Phosphatase 165 U/L (46-116) Total Protein 8.5 G/DL (6.4-8.2) Albumin 3.2 G/DL (3.4-5.0) Globulin 5.3 g/dL Albumin/Globulin Ratio 0.6 (1.0-2.7) Lipase 131 U/L (73-393) CT Abdomen 1. No acute findings in the abdomen or pelvis. No bowel obstruction or bowel wall thickening. No obstructive uropathy. 2. 3.6 cmsimple-appearing right ovarian cyst. ACR White Paper guidelines (Thien , et. al. JACR 2013; 10(9):675-681) suggest pelvic ultrasound follow-up in 6-12weeks. 3. Small bilateral fat-containing inguinal hernias. 4. Status post cholecystectomy. 5. Diffuselyhypodense liver, suggesting fattyinfiltration. Subjective ROS Limited/Unobtainable: No Allergies: Coded Allergies: No Known Allergies (Unverified , 06/16/17) Objective Last 24 Hour Vital Signs Date Time Temp Pulse Resp B/P (MAP) Pulse Ox O2 Delivery O2 Flow Rate FiO2 03/18/19 16:14 99.8 76 19 150/79 (102) 93 03/18/19 12:50 99.7 03/18/19 12:00 100.2 60 20 142/53 (82) 98 03/18/19 10:32 69 18 100 Room Air 21 03/18/19 10:24 67 18 96 Room Air 21 03/18/19 09:36 72 154/76 03/18/19 09:00 Room Air 03/18/19 08:55 73 18 96 Room Air 21 03/18/19 08:00 97.9 72 18 154/76 (102) 97 03/18/19 04:30 97.8 72 18 146/81 (102) 95 03/18/19 00:20 97.8 72 20 145/72 (96) 95 03/17/19 21:00 Room Air 03/17/19 21:00 99.2 72 18 145/72 (96) 96 03/17/19 20:42 Room Air 03/17/19 19:30 97.8 78 16 148/72 98 Room Air Intake and Output 03/17/19 03/18/19 19:00 07:00 Intake Total 1000 ml 700 ml Output Total 600 ml Balance 1000 ml 100 ml Intake Oral 0 ml IV Total 1000 ml 700 ml Output Urine Total 600 ml # Voids 2 # Bowel Movements 1 Laboratory Tests 03/17/19 23:50: Human Chorionic Gonadotropin, Quant 1 03/18/19 05:30: White Blood Count 4.3L, Red Blood Count 4.34, Hemoglobin 11.4L, Hematocrit 35.6L , Mean Corpuscular Volume 82, Mean Corpuscular Hemoglobin 26.2L, Mean Corpuscular Hemoglobin Concent 32.0, Red Cell Distribution Width 22.1H, Platelet Count 101L, Mean Platelet Volume 7.8, Neutrophils (%) (Auto) 66.5, Lymphocytes (%) (Auto) 23.9, Monocytes (%) (Auto) 7.7, Eosinophils (%) (Auto) 0.6, Basophils (%) (Auto) 1.4, Sodium Level 141, Potassium Level 3.0L, Chloride Level 106, Carbon Dioxide Level 26, Anion Gap 9, Blood Urea Nitrogen 8, Creatinine 0.6, Estimat Glomerular Filtration Rate > 60, Glucose Level 130H, Calcium Level 8.9, Total Bilirubin 2.1H, Direct Bilirubin 0.8H, Aspartate Amino Transf (AST/SGOT) 94H, Alanine Aminotransferase (ALT/SGPT) 41, Alkaline Phosphatase 137H, Total Protein 7.5, Albumin 2.7L, Globulin 4.8, Albumin/ Globulin Ratio 0.6L 03/18/19 15:10: Sodium Level 137, Potassium Level 3.9, Chloride Level 104, Carbon Dioxide Level 26, Anion Gap 7, Blood Urea Nitrogen 6L, Creatinine 0.6, Estimat Glomerular Filtration Rate > 60, Glucose Level 126H, Calcium Level 8.9 Current Medications Medications (Trade) Dose Ordered Sig/Imani Route PRN Reason Start Time Stop Time Status Last Admin Dose Admin Acetaminophen (Tylenol) 650 mg Q6H PRN ORAL Pain Scale (3-5) 03/17/19 23:00 04/16/19 22:59 Albuterol/ Ipratropium (Albuterol/ Ipratropium) 3 ml Q6HRT PRN HHN Shortness of Breath 03/17/19 23:15 03/22/19 23:14 Amlodipine Besylate (Norvasc) 5 mg DAILY ORAL 03/18/19 09:00 04/17/19 08:59 03/18/19 09:36 Budesonide (Pulmicort) 0.5 mg BIDRT HHN 03/18/19 10:00 04/17/19 09:59 03/18/19 10:24 Dextrose (Dextrose 50%) 25 ml Q30M PRN IV Hypoglycemia 03/17/19 23:15 04/16/19 23:14 Dextrose (Dextrose 50%) 50 ml Q30M PRN IV Hypoglycemia 03/17/19 23:15 04/16/19 23:14 Dextrose/Sodium Chloride 1,000 ml @ 100 mls/hr Q10H IV 03/17/19 23:00 04/16/19 22:59 03/18/19 09:33 Diphenhydramine HCl (Benadryl) 25 mg Q6H PRN ORAL Itching 03/17/19 23:00 04/16/19 22:59 Guaifenesin (Robitussin) 100 mg Q6H PRN ORAL For Cough 03/17/19 23:00 04/16/19 22:59 Heparin Sodium (Porcine) (Heparin 5000 units/ml) 5,000 units EVERY 12 HOURS SUBQ 03/18/19 09:00 04/17/19 08:59 Hydromorphone HCl (Dilaudid) 0.5 mg Q3H PRN IVP Pain Scale (6-10) 03/17/19 23:00 03/24/19 22:59 Insulin Aspart (NovoLOG) BEFORE MEALS AND HS SUBQ 03/18/19 06:30 04/17/19 06:29 03/18/19 11:45 Ketoconazole (Nizoral 2% Shampoo) 1 applic DAILY PRN TOPIC SCALP FLAKING/PRURITIS 03/17/19 23:15 04/16/19 23:14 Lorazepam (Ativan 2mg/ml 1ml) 0.5 mg Q4H PRN IV SEVERE NAUSEA/VOMITING 03/17/19 23:15 03/24/19 23:14 Ondansetron HCl (Zofran) 8 mg Q8H PRN IVP Nausea & Vomiting 03/17/19 23:15 04/16/19 23:14 Pantoprazole (Protonix) 40 mg DAILY ORAL 03/18/19 09:00 04/17/19 08:59 03/18/19 09:36 Prednisone (predniSONE) 5 mg DAILY ORAL 03/20/19 09:00 03/22/19 08:59 Prednisone (predniSONE) 10 mg DAILY ORAL 03/18/19 09:00 03/20/19 08:59 03/18/19 09:36 Arden Mckeon MD Mar 18, 2019 18:56
--- NOTE | 2019-03-18 19:15 | NUR ---
HAND-OFF: Report given to Jalyn ADLER.
--- NOTE | 2019-03-18 19:48 | NUR ---
NURSE NOTES: Received patient in bed, awake, alert, oriented, Kosovan speaking, family at bedside, venous duplex is pending , no acute distress noted, VSS, afebrile, call light is within reach, bed is in low position, locked and alarm is on.
[2019-03-18 20:00] VITALS: BP 138/78
[2019-03-19] VITALS (7 sets, daily range): BP systolic 137–150; BP diastolic 77–80
[2019-03-19] MEDS: D5NS 1,000 ML IV SCH ×3 (05:01→17:21)
[2019-03-19] MEDS: NovoLOG Insulin Flexpen SUBQ SCH ×4 (05:57→21:00)
[2019-03-19 06:55] LABS: BASOPHILS % (AUTO) 1.1 % (0.0-2.0); EOSINOPHILS % (AUTO) 1.7 % (0.0-3.0); HEMATOCRIT 36.6 % (37.0-47.0); HEMOGLOBIN 11.6 G/DL (12.0-16.0); MEAN CORPUSCULAR VOLUME 82 FL (80-99); MONOCYTES % (AUTO) 7.6 % (1.0-10.0); NEUTROPHILS % (AUTO) 63.6 % (45.0-75.0); PLATELET COUNT 102 K/UL (150-450); RED BLOOD COUNT 4.47 M/UL (4.20-5.40); RED CELL DISTRIBUTION WIDTH 21.9 % (11.6-14.8); WHITE BLOOD COUNT 4.7 K/UL (4.8-10.8)
--- NOTE | 2019-03-19 06:56 | NUR ---
HAND-OFF: Report given to Naila ADLER.
[2019-03-19 07:24] LABS: ALANINE AMINOTRANSFERASE 45 U/L (12-78); ALBUMIN 2.8 G/DL (3.4-5.0); ALBUMIN/GLOBULIN RATIO 0.6 (1.0-2.7); ALKALINE PHOSPHATASE 154 U/L (46-116); ANION GAP 7 mmol/L (5-15); ASPARTATE AMINO TRANSFERASE 106 U/L (15-37); BILIRUBIN,DIRECT 0.8 MG/DL (0.0-0.3); BILIRUBIN,TOTAL 1.9 MG/DL (0.2-1.0); BLOOD UREA NITROGEN 5 mg/dL (7-18); CALCIUM 8.7 MG/DL (8.5-10.1); CARBON DIOXIDE 26 MMOL/L (21-32); CHLORIDE 104 MMOL/L (98-107); CREATININE 0.6 MG/DL (0.55-1.30); POTASSIUM 2.9 MMOL/L (3.5-5.1); SODIUM 137 MMOL/L (136-145)
--- NOTE | 2019-03-19 07:37 | NUR ---
NURSE NOTES: Pt is sleep . Call light is in reach. Outgoing nurse reports no complaints of n/v
[2019-03-19] MEDS: Heparin 5000 units/ml inj SUBQ SCH ×2 (09:00→21:00)
[2019-03-19] MEDS: Budesonide HHN 0.25mg/2ml ud HHN SCH ×2 (10:00→22:54)
--- NOTE | 2019-03-19 10:03 | GI Progress Note ---
Assessment/Plan Problems: (1) abdominal pain, nausea vomiting (2) Persistent vomiting ICD Codes: R11.10 - Vomiting, unspecified SNOMED: 662658373 (3) Gastritis ICD Codes: K29.70 - Gastritis, unspecified, without bleeding SNOMED: 2525749 (4) Viral gastroenteritis ICD Codes: A08.4 - Viral intestinal infection, unspecified SNOMED: 435034698 Status: stable Status Narrative Discussed with Dr. De Leon Assessment/Plan Symptomatic treatment at this time Okay for DC per GI standpoint once electrolytes are corrected Zofran as needed Advance to regular diet Outpatient GI procedures The patient was seen and examined at bedside and all new and available data was reviewed in the patients chart. I agree with the above findings, impression and plan. (Patient seen earlier today. Signature stamp does not reflect patient encounter time.). - Blane De Leon MD Subjective Subjective Tolerating diet Denies any abdominal pain States her nausea vomiting has resolved Objective Last 24 Hour Vital Signs Date Time Temp Pulse Resp B/P (MAP) Pulse Ox O2 Delivery O2 Flow Rate FiO2 03/19/19 09:36 70 157/77 03/19/19 04:00 98.0 78 18 138/78 (98) 03/19/19 01:03 98.9 78 18 138/78 (98) 03/19/19 00:00 97.8 89 18 138/78 (98) 03/18/19 22:45 76 18 96 Room Air 21 03/18/19 21:00 Room Air 03/18/19 20:00 98.9 89 20 138/78 (98) 03/18/19 16:14 99.8 76 19 150/79 (102) 93 03/18/19 12:50 99.7 03/18/19 12:00 100.2 60 20 142/53 (82) 98 03/18/19 10:32 69 18 100 Room Air 21 03/18/19 10:24 67 18 96 Room Air 21 Intake and Output 03/18/19 03/19/19 18:59 06:59 Intake Total 1467 ml Output Total 750 ml Balance 717 ml Intake Oral 767 ml IV Total 700 ml Output Urine Total 750 ml # Voids 3 Laboratory Tests Test 03/18/19 15:10 03/19/19 06:18 Sodium Level 137 MMOL/L (136-145) 137 MMOL/L (136-145) Potassium Level 3.9 MMOL/L (3.5-5.1) 2.9 MMOL/L (3.5-5.1) L Chloride Level 104 MMOL/L (98-107) 104 MMOL/L (98-107) Carbon Dioxide Level 26 MMOL/L (21-32) 26 MMOL/L (21-32) Anion Gap 7 mmol/L (5-15) 7 mmol/L (5-15) Blood Urea Nitrogen 6 mg/dL (7-18) L 5 mg/dL (7-18) L Creatinine 0.6 MG/DL (0.55-1.30) 0.6 MG/DL (0.55-1.30) Estimat Glomerular Filtration Rate > 60 mL/min (>60) > 60 mL/min (>60) Glucose Level 126 MG/DL (74-106) H 121 MG/DL (74-106) H Calcium Level 8.9 MG/DL (8.5-10.1) 8.7 MG/DL (8.5-10.1) White Blood Count 4.7 K/UL (4.8-10.8) L Red Blood Count 4.47 M/UL (4.20-5.40) Hemoglobin 11.6 G/DL (12.0-16.0) L Hematocrit 36.6 % (37.0-47.0) L Mean Corpuscular Volume 82 FL (80-99) Mean Corpuscular Hemoglobin 26.0 PG (27.0-31.0) L Mean Corpuscular Hemoglobin Concent 31.7 G/DL (32.0-36.0) L Red Cell Distribution Width 21.9 % (11.6-14.8) H Platelet Count 102 K/UL (150-450) L Mean Platelet Volume 7.7 FL (6.5-10.1) Neutrophils (%) (Auto) 63.6 % (45.0-75.0) Lymphocytes (%) (Auto) 26.0 % (20.0-45.0) Monocytes (%) (Auto) 7.6 % (1.0-10.0) Eosinophils (%) (Auto) 1.7 % (0.0-3.0) Basophils (%) (Auto) 1.1 % (0.0-2.0) Total Bilirubin 1.9 MG/DL (0.2-1.0) H Direct Bilirubin 0.8 MG/DL (0.0-0.3) H Aspartate Amino Transf (AST/SGOT) 106 U/L (15-37) H Alanine Aminotransferase (ALT/SGPT) 45 U/L (12-78) Alkaline Phosphatase 154 U/L (46-116) H Total Protein 7.8 G/DL (6.4-8.2) Albumin 2.8 G/DL (3.4-5.0) L Globulin 5.0 g/dL Albumin/Globulin Ratio 0.6 (1.0-2.7) L Height (Feet): 5 Height (Inches): 3.00 Weight (Pounds): 199 General Appearance: WD/WN, no apparent distress, alert Cardiovascular: normal rate Respiratory/Chest: normal breath sounds, no respiratory distress Abdominal Exam: normal bowel sounds, non tender, soft Extremities: normal range of motion, non-tender Ever Morse NP Mar 19, 2019 10:03
--- NOTE | 2019-03-19 10:25 | NUR ---
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
--- NOTE | 2019-03-19 10:48 | NUR ---
*-* NO INSURANCE INFORMATION IN THE BAR UNABLE TO SEND CLINICALS OR REVIEWS *-*
--- NOTE | 2019-03-19 11:10 | NUR ---
NURSE NOTES: Dr Ibrahim call ed due to pt low potassium level gave orders to give 40 meq and bmp. CMP already scheduled and drawn for today and scheduled for tomorrow. Potassium given po , pt able to swallow tablet and tolerated. IV continued . Current plan of care will be followed. Educated on food items containing potassium
--- NOTE | 2019-03-19 13:53 | NUR ---
NURSE NOTES: Pt was provided with towels , and a clean gown states she will freshen up shortly . Call light is in reach. IV disconnected per pt request to facilitate grooming needs. Current plan of care will be followed
--- NOTE | 2019-03-19 16:46 | NUR ---
NURSE NOTES: Pt is able to verbalized known needs, Dr Mckeon here seen pt . Pt daughter is at bedside, iv remains patent and functioning
--- NOTE | 2019-03-19 18:24 | NUR ---
NURSE NOTES: In remains patent 3 units of insulin given for level of 137. Pt is more upbeat, and talkative, no longer appears to have generalized weakness, gait is stronger
[2019-03-19 19:03] LABS: ANION GAP 11 mmol/L (5-15); BLOOD UREA NITROGEN 79 mg/dL (7-18); CALCIUM 8.5 MG/DL (8.5-10.1); CARBON DIOXIDE 24 MMOL/L (21-32); CHLORIDE 102 MMOL/L (98-107); CREATININE 13.1 MG/DL (0.55-1.30); POTASSIUM 4.9 MMOL/L (3.5-5.1); SODIUM 137 MMOL/L (136-145)
--- NOTE | 2019-03-19 19:37 | NUR ---
HAND-OFF: Report given to Romeo ADLER informed of low potassium and possible discharge tomorrow.
--- NOTE | 2019-03-19 19:38 | NUR ---
NURSE NOTES: no episode of nausea or vomiting this shift
--- NOTE | 2019-03-19 20:00 | NUR ---
NURSE NOTES: Patient in bed awake and oriented. VSS. No SOB noted. No signs of N&V. Due meds given. Accucheck done. Call light within reach. Needs attended. In stable condition.
--- NOTE | 2019-03-19 22:38 | Pulmonology Progress Note ---
Assessment/Plan Assessment/Plan Progress Note HPI Patient ia a 59 year old woman who presented complaining of vomiting diarrhea ongoing for the past 3 days Denies any chest pain she does complain of left upper mid abdominal pain denies any blood in the stool Denies any recent travel denies any other sick contacts denies any neck pain or photophobia denies any obvious fevers patient is not able to keep down much oral intake Denies any rash or new medications No furthet N/V today Allergies: No Known Allergies Past Medical History: Hypertension, Asthma, Gastritis All Other Systems: negative except mentioned in HPI Physical Exam Vital Signs Noted General Appearance: well appearing, no apparent distress Head: normocephalic, atraumatic Eyes: bilateral eye PERRL, bilateral eye EOMI ENT: hearing grossly normal, normal pharynx, TMs + canals normal, uvula midline Neck: full range of motion, supple, no meningismus, no bony tend Respiratory: lungs clear, normal breath sounds, no rhonchi, no respiratory distress, no retraction, no accessory muscle use Cardiovascular: normal peripheral pulses, HS1and HS2, normal, regular rate, rhythm, no edema, no gallop, no JVD, no murmur Gastrointestinal: normal bowel sounds, non tender, soft, no mass, no organomegaly, non-distended, no guarding, no hernia, no pulsatile mass, no rebound Genitourinary: no CVA tenderness Musculoskeletal: normal inspection Neurologic: oriented x3, responsive, 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 No acute findings in the abdomen or pelvis. No bowel obstruction or bowel wall thickening. No obstructive uropathy. 2. 3.6 cmsimple-appearing right ovarian cyst. ACR White Paper guidelines (Thien , et. al. JACR 2013; 10(9):675-681) suggest pelvic ultrasound follow-up in 6-12weeks. 3. Small bilateral fat-containing inguinal hernias. 4. Status post cholecystectomy. 5. Diffuselyhypodense liver, suggesting fattyinfiltration. Subjective ROS Limited/Unobtainable: No Allergies: Coded Allergies: No Known Allergies (Unverified , 06/16/17) Objective Last 24 Hour Vital Signs Date Time Temp Pulse Resp B/P (MAP) Pulse Ox O2 Delivery O2 Flow Rate FiO2 03/19/19 16:00 98.6 80 16 149/80 (103) 03/19/19 12:00 99.0 72 18 137/78 (97) 03/19/19 10:46 80 20 100 Room Air 21 03/19/19 10:40 70 16 97 Room Air 21 03/19/19 09:36 70 157/77 03/19/19 09:00 Room Air 03/19/19 08:00 98.5 70 16 150/77 (101) 03/19/19 04:00 98.0 78 18 138/78 (98) 03/19/19 01:03 98.9 78 18 138/78 (98) 03/19/19 00:00 97.8 89 18 138/78 (98) 03/18/19 22:45 76 18 96 Room Air 21 Intake and Output 03/18/19 03/19/19 19:00 07:00 Intake Total 1367 ml Output Total 750 ml Balance 617 ml Intake Oral 767 ml IV Total 600 ml Output Urine Total 750 ml # Voids 3 Laboratory Tests 03/19/19 06:18: White Blood Count 4.7L, Red Blood Count 4.47, Hemoglobin 11.6L, Hematocrit 36.6L , Mean Corpuscular Volume 82, Mean Corpuscular Hemoglobin 26.0L, Mean Corpuscular Hemoglobin Concent 31.7L, Red Cell Distribution Width 21.9H, Platelet Count 102L, Mean Platelet Volume 7.7, Neutrophils (%) (Auto) 63.6, Lymphocytes (%) (Auto) 26.0, Monocytes (%) (Auto) 7.6, Eosinophils (%) (Auto) 1.7, Basophils (%) (Auto) 1.1, Sodium Level 137, Potassium Level 2.9L, Chloride Level 104, Carbon Dioxide Level 26, Anion Gap 7, Blood Urea Nitrogen 5L, Creatinine 0.6, Estimat Glomerular Filtration Rate > 60, Glucose Level 121H, Calcium Level 8.7, Total Bilirubin 1.9H, Direct Bilirubin 0.8H, Aspartate Amino Transf (AST/SGOT) 106H, Alanine Aminotransferase (ALT/SGPT) 45, Alkaline Phosphatase 154H, Total Protein 7.8, Albumin 2.8L, Globulin 5.0, Albumin/ Globulin Ratio 0.6L 03/19/19 18:30: Sodium Level 137, Potassium Level 4.9#, Chloride Level 102, Carbon Dioxide Level 24, Anion Gap 11, Blood Urea Nitrogen 79H, Creatinine 13.1#H, Estimat Glomerular Filtration Rate 3.0, Glucose Level 58L, Calcium Level 8.5 Current Medications Medications (Trade) Dose Ordered Sig/Imani Route PRN Reason Start Time Stop Time Status Last Admin Dose Admin Acetaminophen (Tylenol) 650 mg Q6H PRN ORAL Pain Scale (3-5) 03/17/19 23:00 04/16/19 22:59 Albuterol/ Ipratropium (Albuterol/ Ipratropium) 3 ml Q6HRT PRN HHN Shortness of Breath 03/17/19 23:15 03/22/19 23:14 Amlodipine Besylate (Norvasc) 5 mg DAILY ORAL 03/18/19 09:00 04/17/19 08:59 03/19/19 09:36 Budesonide (Pulmicort) 0.5 mg BIDRT HHN 03/18/19 10:00 04/17/19 09:59 03/19/19 10:00 Dextrose (Dextrose 50%) 25 ml Q30M PRN IV Hypoglycemia 03/17/19 23:15 04/16/19 23:14 Dextrose (Dextrose 50%) 50 ml Q30M PRN IV Hypoglycemia 03/17/19 23:15 04/16/19 23:14 Diphenhydramine HCl (Benadryl) 25 mg Q6H PRN ORAL Itching 03/17/19 23:00 04/16/19 22:59 Guaifenesin (Robitussin) 100 mg Q6H PRN ORAL For Cough 03/17/19 23:00 04/16/19 22:59 Heparin Sodium (Porcine) (Heparin 5000 units/ml) 5,000 units EVERY 12 HOURS SUBQ 03/18/19 09:00 04/17/19 08:59 Hydromorphone HCl (Dilaudid) 0.5 mg Q3H PRN IVP Pain Scale (6-10) 03/17/19 23:00 03/24/19 22:59 Insulin Aspart (NovoLOG) BEFORE MEALS AND HS SUBQ 03/18/19 06:30 04/17/19 06:29 03/19/19 17:22 Ketoconazole (Nizoral 2% Shampoo) 1 applic DAILY PRN TOPIC SCALP FLAKING/PRURITIS 03/17/19 23:15 04/16/19 23:14 Lorazepam (Ativan 2mg/ml 1ml) 0.5 mg Q4H PRN IV SEVERE NAUSEA/VOMITING 03/17/19 23:15 03/24/19 23:14 Ondansetron HCl (Zofran) 8 mg Q8H PRN IVP Nausea & Vomiting 03/17/19 23:15 04/16/19 23:14 Pantoprazole (Protonix) 40 mg DAILY ORAL 03/18/19 09:00 04/17/19 08:59 03/19/19 09:36 Prednisone (predniSONE) 5 mg DAILY ORAL 03/20/19 09:00 03/22/19 08:59 Prednisone (predniSONE) 10 mg DAILY ORAL 03/18/19 09:00 03/20/19 08:59 03/19/19 09:35 Arden Mckeon MD Mar 19, 2019 22:38
[2019-03-20] VITALS: BP 150/78
[2019-03-20 04:00] VITALS: BP 155/87
[2019-03-20] MEDS: NovoLOG Insulin Flexpen SUBQ SCH (06:30)
[2019-03-20 06:45] LABS: BASOPHILS % (AUTO) 1.2 % (0.0-2.0); EOSINOPHILS % (AUTO) 1.7 % (0.0-3.0); HEMATOCRIT 36.9 % (37.0-47.0); LYMPHOCYTES % (AUTO) 26.1 % (20.0-45.0); MEAN CORPUSCULAR VOLUME 82 FL (80-99); MONOCYTES % (AUTO) 6.7 % (1.0-10.0); NEUTROPHILS % (AUTO) 64.3 % (45.0-75.0); PLATELET COUNT 121 K/UL (150-450); RED BLOOD COUNT 4.51 M/UL (4.20-5.40); RED CELL DISTRIBUTION WIDTH 21.9 % (11.6-14.8); WHITE BLOOD COUNT 5.7 K/UL (4.8-10.8)
[2019-03-20 07:14] LABS: ALANINE AMINOTRANSFERASE 52 U/L (12-78); ALBUMIN 2.8 G/DL (3.4-5.0); ALBUMIN/GLOBULIN RATIO 0.6 (1.0-2.7); ALKALINE PHOSPHATASE 173 U/L (46-116); ANION GAP 8 mmol/L (5-15); ASPARTATE AMINO TRANSFERASE 94 U/L (15-37); BILIRUBIN,DIRECT 0.7 MG/DL (0.0-0.3); BILIRUBIN,TOTAL 1.6 MG/DL (0.2-1.0); BLOOD UREA NITROGEN 8 mg/dL (7-18); CALCIUM 9.3 MG/DL (8.5-10.1); CARBON DIOXIDE 28 MMOL/L (21-32); CHLORIDE 103 MMOL/L (98-107); CREATININE 0.5 MG/DL (0.55-1.30); SODIUM 138 MMOL/L (136-145)
[2019-03-20 08:00] VITALS: BP 139/74
--- NOTE | 2019-03-20 08:00 | NUR ---
NURSE NOTES: Received report from Romeo Champion pt a/a/o x4 ambulating around the room with steady gait. pt able to tolerate her diet with no n/v. IV on the left AC gauge #20 heplock. call light within reach, bed in lowest position. side rales up x2. plan to d/c home today. I will f/u as needed.
--- NOTE | 2019-03-20 08:05 | General Progress Note ---
Assessment/Plan Status: stable Assessment/Plan: Vomiting Asthma Hypertension Previous Gastritis PLAN care noted gi clearance dc planning reviewed chart impression, plan, and exam edited and reviewed in detail care discussed with RN Subjective Allergies: Coded Allergies: No Known Allergies (Unverified , 06/16/17) Subjective care noted and reviewed no distress gi noted Objective Last 24 Hour Vital Signs Date Time Temp Pulse Resp B/P (MAP) Pulse Ox O2 Delivery O2 Flow Rate FiO2 03/20/19 04:00 98.1 75 17 155/87 (109) 03/20/19 00:00 98.8 78 18 150/78 (102) 03/19/19 22:59 71 16 100 Room Air 21 03/19/19 22:52 66 16 96 Room Air 21 03/19/19 21:00 Room Air 03/19/19 20:00 98.8 78 18 150/78 (102) 03/19/19 16:00 98.6 80 16 149/80 (103) 03/19/19 12:00 99.0 72 18 137/78 (97) 03/19/19 10:46 80 20 100 Room Air 21 03/19/19 10:40 70 16 97 Room Air 21 03/19/19 09:36 70 157/77 03/19/19 09:00 Room Air Intake and Output 03/19/19 03/20/19 19:00 07:00 Intake Total 600 ml Balance 600 ml Intake Oral 600 ml # Voids 2 Laboratory Tests 03/19/19 18:30: Sodium Level 137, Potassium Level 4.9#, Chloride Level 102, Carbon Dioxide Level 24, Anion Gap 11, Blood Urea Nitrogen 79H, Creatinine 13.1#H, Estimat Glomerular Filtration Rate 3.0, Glucose Level 58L, Calcium Level 8.5 03/20/19 06:07: Sodium Level 138, Potassium Level 3.0L, Chloride Level 103, Carbon Dioxide Level 28, Anion Gap 8, Blood Urea Nitrogen 8, Creatinine 0.5#L, Estimat Glomerular Filtration Rate > 60, Glucose Level 101, Calcium Level 9.3, White Blood Count 5.7, Red Blood Count 4.51, Hemoglobin 12.0, Hematocrit 36.9L, Mean Corpuscular Volume 82, Mean Corpuscular Hemoglobin 26.6L, Mean Corpuscular Hemoglobin Concent 32.5, Red Cell Distribution Width 21.9H, Platelet Count 121L , Mean Platelet Volume 8.3, Neutrophils (%) (Auto) 64.3, Lymphocytes (%) (Auto) 26.1, Monocytes (%) (Auto) 6.7, Eosinophils (%) (Auto) 1.7, Basophils (%) (Auto ) 1.2, Total Bilirubin 1.6H, Direct Bilirubin 0.7H, Aspartate Amino Transf (AST/ SGOT) 94H, Alanine Aminotransferase (ALT/SGPT) 52, Alkaline Phosphatase 173H, Total Protein 7.8, Albumin 2.8L, Globulin 5.0, Albumin/Globulin Ratio 0.6L Height (Feet): 5 Height (Inches): 3.00 Weight (Pounds): 199 Objective WDWN NAD clear breath sounds bilaterally without rhonchi or wheeze [id number] without MRG NABS nontender no HSM no CCE nonfocal Mao Oretga MD Mar 20, 2019 08:04
--- NOTE | 2019-03-20 08:30 | NUR ---
NURSE NOTES: Called Dr. Ortega to inform of patients potassium been low: 3.0. RN will carry on orders. I will f/u as needed.
[2019-03-20] MEDS: Heparin 5000 units/ml inj SUBQ SCH (09:00)
[2019-03-20 09:06] VITALS: BP 139/74
[2019-03-20] MEDS: Budesonide HHN 0.25mg/2ml ud HHN SCH (09:50)
--- NOTE | 2019-03-20 10:00 | NUR ---
CASE MANAGEMENT: REVIEW 03/20/2019 SI:DIARRHEA. HTN. T 100 HR 79 RR 19 B/P 139/74 SATS 100% ON RA K 3 CR 0.5 TBILI 1.6 DBILI 0.7 AST 94 ALP 173 IS:NORVASC PO QD PROTONIX PO QD PREDNISONE PO QD INSULIN ASPART SUBQ AC/HS K DUR PO X1 MED/SURG STATUS DCP: PATIENT TO BE DISCHARGED TO HOME ONCE MEDICALLY CLEARED.
--- NOTE | 2019-03-20 10:09 | NUR ---
INSURANCE CLINICALS FAXED TO [facility]: KARIN Camilo- [phone] - [phone]....REVIEW/CLINICAL Addendum: 03/22/19 at 1102 by SHAUNA CÁRDENAS REF# [id number]
--- NOTE | 2019-03-20 10:38 | GI Progress Note ---
Assessment/Plan Problems: (1) abdominal pain, nausea vomiting (2) Persistent vomiting ICD Codes: R11.10 - Vomiting, unspecified SNOMED: 952457528 (3) Gastritis ICD Codes: K29.70 - Gastritis, unspecified, without bleeding SNOMED: 0900814 (4) Viral gastroenteritis ICD Codes: A08.4 - Viral intestinal infection, unspecified SNOMED: 803167282 Status: stable Status Narrative Discussed with Dr. De Leon Assessment/Plan Symptomatic treatment at this time Okay for DC per GI standpoint Zofran as needed Advance to regular diet Outpatient GI procedures The patient was seen and examined at bedside and all new and available data was reviewed in the patients chart. I agree with the above findings, impression and plan. (Patient seen earlier today. Signature stamp does not reflect patient encounter time.). - Blane De Leon MD Subjective Subjective Tolerating diet Denies any abdominal pain States her nausea vomiting has resolved Objective Last 24 Hour Vital Signs Date Time Temp Pulse Resp B/P (MAP) Pulse Ox O2 Delivery O2 Flow Rate FiO2 03/20/19 09:50 Room Air 21 03/20/19 09:50 Room Air 21 03/20/19 09:06 79 139/74 03/20/19 09:00 Room Air 03/20/19 08:00 100.0 79 19 139/74 (95) 03/20/19 04:00 98.1 75 17 155/87 (109) 03/20/19 00:00 98.8 78 18 150/78 (102) 03/19/19 22:59 71 16 100 Room Air 21 03/19/19 22:52 66 16 96 Room Air 21 03/19/19 21:00 Room Air 03/19/19 20:00 98.8 78 18 150/78 (102) 03/19/19 16:00 98.6 80 16 149/80 (103) 03/19/19 12:00 99.0 72 18 137/78 (97) 03/19/19 10:46 80 20 100 Room Air 21 03/19/19 10:40 70 16 97 Room Air 21 Intake and Output 03/19/19 03/20/19 18:59 06:59 Intake Total 600 ml Balance 600 ml Intake Oral 600 ml # Voids 2 Laboratory Tests Test 03/19/19 18:30 03/20/19 06:07 Sodium Level 137 MMOL/L (136-145) 138 MMOL/L (136-145) Potassium Level 4.9 MMOL/L (3.5-5.1) # 3.0 MMOL/L (3.5-5.1) L Chloride Level 102 MMOL/L (98-107) 103 MMOL/L (98-107) Carbon Dioxide Level 24 MMOL/L (21-32) 28 MMOL/L (21-32) Anion Gap 11 mmol/L (5-15) 8 mmol/L (5-15) Blood Urea Nitrogen 79 mg/dL (7-18) H 8 mg/dL (7-18) Creatinine 13.1 MG/DL (0.55-1.30) #H 0.5 MG/DL (0.55-1.30) #L Estimat Glomerular Filtration Rate 3.0 mL/min (>60) > 60 mL/min (>60) Glucose Level 58 MG/DL (74-106) L 101 MG/DL (74-106) Calcium Level 8.5 MG/DL (8.5-10.1) 9.3 MG/DL (8.5-10.1) White Blood Count 5.7 K/UL (4.8-10.8) Red Blood Count 4.51 M/UL (4.20-5.40) Hemoglobin 12.0 G/DL (12.0-16.0) Hematocrit 36.9 % (37.0-47.0) L Mean Corpuscular Volume 82 FL (80-99) Mean Corpuscular Hemoglobin 26.6 PG (27.0-31.0) L Mean Corpuscular Hemoglobin Concent 32.5 G/DL (32.0-36.0) Red Cell Distribution Width 21.9 % (11.6-14.8) H Platelet Count 121 K/UL (150-450) L Mean Platelet Volume 8.3 FL (6.5-10.1) Neutrophils (%) (Auto) 64.3 % (45.0-75.0) Lymphocytes (%) (Auto) 26.1 % (20.0-45.0) Monocytes (%) (Auto) 6.7 % (1.0-10.0) Eosinophils (%) (Auto) 1.7 % (0.0-3.0) Basophils (%) (Auto) 1.2 % (0.0-2.0) Total Bilirubin 1.6 MG/DL (0.2-1.0) H Direct Bilirubin 0.7 MG/DL (0.0-0.3) H Aspartate Amino Transf (AST/SGOT) 94 U/L (15-37) H Alanine Aminotransferase (ALT/SGPT) 52 U/L (12-78) Alkaline Phosphatase 173 U/L (46-116) H Total Protein 7.8 G/DL (6.4-8.2) Albumin 2.8 G/DL (3.4-5.0) L Globulin 5.0 g/dL Albumin/Globulin Ratio 0.6 (1.0-2.7) L Height (Feet): 5 Height (Inches): 3.00 Weight (Pounds): 199 General Appearance: WD/WN, no apparent distress, alert Cardiovascular: normal rate Respiratory/Chest: normal breath sounds, no respiratory distress Abdominal Exam: normal bowel sounds, non tender, soft Extremities: normal range of motion, non-tender Ever Morse NP Mar 20, 2019 10:37
--- NOTE | 2019-03-20 10:53 | NUR ---
NURSE NOTES: Received order to d/c home. Belongings and discharge instructions given to patient and pt's daughter. IV removed prior to d/c. pt is aware that needs to make an appointment with her PCP, pt verbalized understanding. pt left the floor with no signs of distress or other issues at this time. pt's daughter will provide transportation. I will f/u as needed.
--- NOTE | 2019-03-20 10:57 | Diagnostic Imaging Report ---
APPROVED REPORT CPT Code: 68393 Present Symptoms Comments: Right leg swelling BILATERAL: Imaging reveals a patent deep venous system bilaterally. There is no evidence of thrombus within the common femoral, superficial femoral, popliteal or tibial segments. The greater saphenous veins are within normal limits. Doppler indicates normal spontaneous flow within these segments.
[2019-03-20] MEDS ORDERED: D5NS 1000ml IV ONE (10:59)
[2019-03-20] MEDS ORDERED: Tubing IV Secondary IV ONE (10:59)
--- NOTE | 2019-03-21 09:05 | Discharge Summary ---
Discharge Summary Discharge Summary _ DATE OF ADMISSION: 03/17/2019 DATE OF DISCHARGE: 03/20/2019 DISCHARGED BY: Dr. Ortega REASON FOR ADMISSION: 59 years old female with past medical history of hypertension, asthma, gastritis, presented with chief complaint of abdominal pain, vomiting, and diarrhea for the past 3 days. Patient complained of left upper and mid abdominal pain. Patient denied any blood in the stool or emesis. She denied any recent traveling or sick contacts. No fever , no chills. Patient denied chest pain and shortness of breath. Upon evaluation vital signs were stable.. Laboratory work-up revealed no leukocytosis , stable hemoglobin and hematocrit. Potassium 3.4. Glucose 151. Total bilirubin 2.4, direct bilirubin 0.9 . AST 116, ALT 47. Alkaline phosphatase 165. Albumin 3.2. Lipase within normal limits. test negative CT of the abdomen and pelvis revealed no acute findings in the abdomen or pelvis. No bowel obstruction or bowel wall thickening. No obstructive uropathy. 3.6 cm simple appearing right ovarian cyst. Recommended pelvic ultrasound to follow-up in 6 to 12 weeks. Diffusely hypodense liver suggesting fatty infiltration. Status post cholecystectomy. Small bilateral inguinal hernias. Patient was admitted for further management CONSULTANTS: GI specialist Dr. Mora [facility] COURSE: Patient admitted to medical surgical floor and started on the IV fluids. Patient initially was on clear liquid diet. Symptomatic treatment provided. Patient started on PPI with Protonix. Antiemetic provided as needed. Patient was weaned off steroid.s ( was on oral prednisone upon presentation). Nebulizing treatment provided as needed. Inhaler/budesonide -resumed. DVT prophylaxis provided. GI specialist seen and evaluated patient. Per GI specialist, patient had acute presentation with nausea, vomiting, diarrhea, abdominal pain, which all resolved, and may have been due to typical case of viral gastroenteritis . It was treated conservatively. Diet was advanced to regular as tolerated. Patient was able to tolerate diet. Her abnormal liver tests appeared to be chronic as per patient recall. Patient should follow-up as outpatient by her primary gastrointestinal team for elevated LFT. Total bilirubin from 2.1 down to 1.7 , AST from 116 down to 94. Renal parameters and electrolytes were closely monitored. Electrolytes/potassium replaced. Blood pressure was managed with calcium channel andrew, and remained stable. Blood sugar was managed with sliding scale of insulin. Pulse oximetry was stable on room air. Patient clinically stabilized and was ready for discharge home . FINAL DIAGNOSES: Abdominal pain, nausea, and vomiting, likely due to episode of viral gastroenteritis-resolved Episode of viral gastroenteritis -resolved Asthma Gastritis Hypertension Elevated LFT DISCHARGE MEDICATIONS: List of medications was sent with patient DISCHARGE INSTRUCTIONS: Patient was discharged home. Follow up with primary care provider/ GI team in one week. I have been assigned to dictate discharge summary for this account. I was not involved in the patient's management. Meme Maradiaga NP Mar 21, 2019 09:05
== END 2019-03-20 11:00 | disposition home or self-care (01) | DRG 249 ==
LOC: EMR 13:00 → 3E 16:45 → EDBEDREQSVC 18:43 → EDBEDREQ 18:47
DX: A08.4 Viral intestinal infection, unspecified (principal); I10 Essential (primary) hypertension; J45.909 Unspecified asthma, uncomplicated; R11.2 Nausea with vomiting, unspecified; K29.70 Gastritis, unspecified, without bleeding; R79.89 Other specified abnormal findings of blood chemistry; Z90.49 Acquired absence of other specified parts of digestive tract
CPT/HCPCS: 36415; 74176; 80048; 80053; 82248; 82962; 83690; 84702; 85025; 93970; 94640; 94664; 96361; 96374; 99285; J1815; J2405; J8499

== ENCOUNTER 2019-09-16 17:31 | Inpatient (IN) | payer OTHER ==
[~2019-09-16] VITALS: Ht 160 cm; Wt 90.4 kg
[~2019-09-16 17:31] MED LIST changes: +UNOBMED
--- NOTE | 2019-09-16 17:45 | NUR ---
ED Nurse Note: pt walked in to ER from home due to coughing with yellow phlem for a week. pt aao x4 and ambulatory. skin clean and intact but flushed and wark t Addendum: 09/16/19 at 1749 by [email or web address] ED Nurse Note: pt walked in to ER from home due to coughing with yellow phlem for a week. pt aao x4 and ambulatory. skin clean and intact but flushed and warm to touch. pt is coughing consistantly. no cardiac distress noted. bilateral lungs sound clear.
[2019-09-16 17:46] VITALS: BP 177/88
--- NOTE | 2019-09-16 17:46 | NUR ---
ED Nurse Note: ERMD at bedside.
--- NOTE | 2019-09-16 17:49 | Emergency Room Report ---
History of Present Illness General Chief Complaint: Upper Respiratory Illness Source: Patient Present Illness HPI Patient is a 59-year-old female presents after increased cough and difficulty breathing. Patient a prior history of asthma. She reports having subjective fever. She denies any increased leg pain or swelling. She had onset of symptoms approximately 10 days ago. This had become worse over time. Denies any orthopnea. She had been taking her inhaler without any improvement. She reports having prior history of diabetes and states this is well controlled. Allergies: Coded Allergies: No Known Allergies (Unverified , 06/16/17) Patient History Past Medical History: see triage record Reviewed Nursing Documentation: PMH: Agreed; PSxH: Agreed Nursing Documentation-PMH Hx Cardiac Problems: Yes Hx Hypertension: Yes Hx Pacemaker: No Hx Asthma: Yes Hx COPD: No Hx Diabetes: Yes Hx Cancer: No Hx Gastrointestinal Problems: Yes Hx Dialysis: No Hx Neurological Problems: No Hx Cerebrovascular Accident: No Hx Seizures: No Review of Systems All Other Systems: negative except mentioned in HPI Physical Exam Vital Signs Date Time Temp Pulse Resp B/P (MAP) Pulse Ox O2 Delivery O2 Flow Rate FiO2 09/16/19 17:32 98.4 82 20 177/88 (117) 95 Room Air Sp02 EP Interpretation: reviewed, normal General Appearance: normal inspection, well appearing, no apparent distress, alert, GCS 15 Head: atraumatic ENT: normal ENT inspection, hearing grossly normal, normal voice Neck: normal inspection, full range of motion, supple, no bony tend Respiratory: normal inspection, no respiratory distress, no retraction, decreased breath sounds - right side chest, wheezing Cardiovascular #1: regular rate, rhythm, no edema Gastrointestinal: normal inspection, normal bowel sounds, non tender, soft, no guarding, no hernia Genitourinary: no CVA tenderness Musculoskeletal: normal inspection, back normal, normal range of motion Neurologic: alert, motor strength/tone normal, hair preparer III-XII nml as tested, EOM palsy, responsive, speech normal, normal inspection Psychiatric: normal inspection, judgement/insight normal, mood/affect normal Medical Decision Making Diagnostic Impression: Primary Impression: Asthma exacerbation Additional Impressions: Elevated troponin Viral respiratory infection Urinary tract infection ER Course Patient presented for shortness of breath. Differential included but was not limited to anemia, pneumonia, pneumothorax, myocardial infarction, pericardial effusion, congestive heart failure, acidosis. Because of complexity of patient' s case laboratory tests and imaging studies were ordered. Patient was noted to have frequent coughing episodes with some associated difficulty breathing. This appears to be viral in nature. Influenza study was noted to be negative. EKG interpreted by me showed normal sinus rhythm with a rate of 74 with some QT prolongation.Patient was given IV antibiotics for possible urinary infection. Labs Test 09/16/19 17:45 09/16/19 18:00 Urine Color Ciera Urine Appearance Slightly cloudy Urine pH 8 (4.5-8.0) Urine Specific [place] 1.010 (1.005-1.035) Urine Protein 3+ (NEGATIVE) Urine Glucose (UA) Negative (NEGATIVE) Urine Ketones Negative (NEGATIVE) Urine Blood 5+ (NEGATIVE) Urine Nitrite Negative (NEGATIVE) Urine Bilirubin Negative (NEGATIVE) Urine Ictotest Negative (NEGATIVE) Urine Urobilinogen 4 MG/DL (0.0-1.0) Urine Leukocyte Esterase 1+ (NEGATIVE) Urine RBC Tntc /HPF (0 - 2) Urine WBC 10-15 /HPF (0 - 2) Urine Squamous Epithelial Cells Moderate /LPF (NONE/OCC) Urine Bacteria Moderate /HPF (NONE) White Blood Count 6.7 K/UL (4.8-10.8) Red Blood Count 4.61 M/UL (4.20-5.40) Hemoglobin 13.0 G/DL (12.0-16.0) Hematocrit 37.6 % (37.0-47.0) Mean Corpuscular Volume 82 FL (80-99) Mean Corpuscular Hemoglobin 28.3 PG (27.0-31.0) Mean Corpuscular Hemoglobin Concent 34.7 G/DL (32.0-36.0) Red Cell Distribution Width 12.4 % (11.6-14.8) Platelet Count 164 K/UL (150-450) Mean Platelet Volume 6.9 FL (6.5-10.1) Neutrophils (%) (Auto) 71.1 % (45.0-75.0) Lymphocytes (%) (Auto) 19.3 % (20.0-45.0) Monocytes (%) (Auto) 8.3 % (1.0-10.0) Eosinophils (%) (Auto) 0.2 % (0.0-3.0) Basophils (%) (Auto) 1.1 % (0.0-2.0) Sodium Level 138 MMOL/L (136-145) Potassium Level 2.8 MMOL/L (3.5-5.1) Chloride Level 99 MMOL/L (98-107) Carbon Dioxide Level 33 MMOL/L (21-32) Anion Gap 6 mmol/L (5-15) Blood Urea Nitrogen 13 mg/dL (7-18) Creatinine 0.8 MG/DL (0.55-1.30) Estimat Glomerular Filtration Rate > 60 mL/min (>60) Glucose Level 126 MG/DL (74-106) Lactic Acid Level 1.90 mmol/L (0.4-2.0) Calcium Level 9.4 MG/DL (8.5-10.1) Total Bilirubin 1.1 MG/DL (0.2-1.0) Direct Bilirubin 0.4 MG/DL (0.0-0.3) Aspartate Amino Transf (AST/SGOT) 66 U/L (15-37) Alanine Aminotransferase (ALT/SGPT) 43 U/L (12-78) Alkaline Phosphatase 178 U/L (46-116) Total Creatine Kinase 401 U/L (26-308) Creatine Kinase MB 3.9 NG/ML (0.0-3.6) Creatine Kinase MB Relative Index 0.9 Troponin I 0.212 ng/mL (0.000-0.056) Pro-B-Type Natriuretic Peptide 88 pg/mL (0-125) Total Protein 8.3 G/DL (6.4-8.2) Albumin 2.9 G/DL (3.4-5.0) Globulin 5.4 g/dL Albumin/Globulin Ratio 0.5 (1.0-2.7) Lipase 143 U/L (73-393) EKG Diagnostic Results Rate: normal Rhythm: NSR ST Segments: no acute changes Last Vital Signs Date Time Temp Pulse Resp B/P (MAP) Pulse Ox O2 Delivery O2 Flow Rate FiO2 09/16/19 17:46 82 20 Room Air 09/16/19 17:32 98.4 177/88 (117) 95 Status: unchanged Disposition: ADMITTED INPATIENT Condition: Stable Kenneth Nicholson MD Sep 16, 2019 17:49
--- NOTE | 2019-09-16 18:14 | NUR ---
ED Nurse Note: blood and urine sent to lab.
[2019-09-16 18:19] LABS: APPEARANCE,URINE SLIGHTLY CLOUDY; BILIRUBIN, URINE NEGATIVE (NEGATIVE); COLOR,URINE AMBER; GLUCOSE, URINE (UA) NEGATIVE (NEGATIVE); KETONES,URINE NEGATIVE (NEGATIVE); LEUKOCYTE ESTERASE ,URINE 1+ (NEGATIVE); NITRITE,URINE NEGATIVE (NEGATIVE); PH,URINE 8 (4.5-8.0); PROTEIN,URINE 3+ (NEGATIVE); UROBILINOGEN,URINE 4 MG/DL (0.0-1.0)
[2019-09-16 18:19] LABS: BASOPHILS % (AUTO) 1.1 % (0.0-2.0); EOSINOPHILS % (AUTO) 0.2 % (0.0-3.0); HEMATOCRIT 37.6 % (37.0-47.0); LYMPHOCYTES % (AUTO) 19.3 % (20.0-45.0); MEAN CORPUSCULAR VOLUME 82 FL (80-99); MONOCYTES % (AUTO) 8.3 % (1.0-10.0); NEUTROPHILS % (AUTO) 71.1 % (45.0-75.0); PLATELET COUNT 164 K/UL (150-450); RED BLOOD COUNT 4.61 M/UL (4.20-5.40); RED CELL DISTRIBUTION WIDTH 12.4 % (11.6-14.8); WHITE BLOOD COUNT 6.7 K/UL (4.8-10.8)
--- NOTE | 2019-09-16 18:22 | NUR ---
ED Nurse Note: x-ray at bedside.
[2019-09-16 18:29] LABS: ANION GAP 6 mmol/L (5-15); BLOOD UREA NITROGEN 13 mg/dL (7-18); CALCIUM 9.4 MG/DL (8.5-10.1); CARBON DIOXIDE 33 MMOL/L (21-32); CHLORIDE 99 MMOL/L (98-107); CREATININE 0.8 MG/DL (0.55-1.30); POTASSIUM 2.8 MMOL/L (3.5-5.1); SODIUM 138 MMOL/L (136-145)
[2019-09-16] MEDS ORDERED: Albuterol/Ipratropium 3ml neb HHN ONE (18:30)
--- NOTE | 2019-09-16 18:35 | NUR ---
ED Nurse Note: breathing treatment at bedside.
--- NOTE | 2019-09-16 18:39 | NUR ---
ED Nurse Note: Dr. Nicholson requested repeat EKG. EKG done by
[2019-09-16 18:45] LABS: ALANINE AMINOTRANSFERASE 43 U/L (12-78); ALBUMIN 2.9 G/DL (3.4-5.0); ALBUMIN/GLOBULIN RATIO 0.5 (1.0-2.7); ALKALINE PHOSPHATASE 178 U/L (46-116); ASPARTATE AMINO TRANSFERASE 66 U/L (15-37); BILIRUBIN,TOTAL 1.1 MG/DL (0.2-1.0); CKMB 3.9 NG/ML (0.0-3.6); CREATINE KINASE 401 U/L (26-308)
[2019-09-16 18:50] LABS: BILIRUBIN,DIRECT 0.4 MG/DL (0.0-0.3)
[2019-09-16 19:00] VITALS: BP 139/80
[2019-09-16] MEDS ORDERED: Aspirin Baby 81mg ORAL ONE (19:00)
[2019-09-16] MEDS ORDERED: cefTRIAXone 1 GM in NS 55 ML IVPB ONE (19:00)
[2019-09-16] MEDS ORDERED: Promethazine/DM 6.25mg/5ml ORAL ONE (19:00)
--- NOTE | 2019-09-16 19:07 | NUR ---
HAND-OFF: Report given to NAYELY Dugan.
--- NOTE | 2019-09-16 19:25 | Diagnostic Imaging Report ---
Indication: Shortness of breath Technique: One view of the chest Comparison: none Findings: The heart is borderline enlarged. Lungs and pleural spaces are clear. Impression: Cardiomegaly No acute process This agrees with the preliminary interpretation provided overnight by [facility] teleradiology service.
[2019-09-16] MEDS ORDERED: Solu-MEDROL 125mg Inj IVP ONE (19:30)
--- NOTE | 2019-09-16 21:15 | NUR ---
TRANSFER TO FLOOR: Patient transferred to as ordered, per Dr Au. Report given to NAYELY Doll. Belongings and medications given to . Family and or S/O informed of transfer.
[2019-09-16 21:25] VITALS: BP 150/70
--- NOTE | 2019-09-16 21:25 | NUR ---
NURSE NOTES: Received report from NAYELY Dugan. Patient was transferred from ED to Telemetry via gurney accompanied by 2 staff members, without any incident. Patient is awake, lying in semi jeffries's; resting comfortably. A/Ox4. Primarily Monegasque speaking. Denies pain at this time. No signs of acute distress noted. Placed tele box, SR on the monitor, 75 bpm. Checked IV site and flushed. No erythema, bleeding or infiltration noted. Bed at lowest position, brakes on, siderailsx3. Call light within reach. Dr. Story placed admitting orders. Noted and carried out. Will continue to monitor.
[2019-09-16] MEDS ORDERED: guaiFENesin w/Codeine 5ml Liq ud ORAL PRN (21:45)
[2019-09-16] MEDS: Solu-MEDROL 40mg Inj IVP SCH (22:16)
[2019-09-16] MEDS: NS w/KCl 20mEq 1000ml 1,000 ML IV SCH (22:16)
[2019-09-16] MEDS: Albuterol/Ipratropium 3ml neb HHN SCH (23:19)
[2019-09-17] VITALS (7 sets, daily range): BP systolic 108–160; BP diastolic 60–93
--- NOTE | 2019-09-17 03:17 | NUR ---
NURSE NOTES: Resting throughout the night. No significant change of condition noted. Will continue to monitor.
[2019-09-17] MEDS: Albuterol/Ipratropium 3ml neb HHN SCH ×6 (03:44→23:26)
[2019-09-17] MEDS: NovoLOG Insulin Flexpen SUBQ SCH ×4 (06:01→21:11)
[2019-09-17 07:18] LABS: ALANINE AMINOTRANSFERASE 40 U/L (12-78); ALBUMIN 2.6 G/DL (3.4-5.0); ALBUMIN/GLOBULIN RATIO 0.5 (1.0-2.7); ALKALINE PHOSPHATASE 160 U/L (46-116); ANION GAP 10 mmol/L (5-15); ASPARTATE AMINO TRANSFERASE 51 U/L (15-37); BILIRUBIN,TOTAL 1.1 MG/DL (0.2-1.0); BLOOD UREA NITROGEN 11 mg/dL (7-18); CALCIUM 8.9 MG/DL (8.5-10.1); CARBON DIOXIDE 26 MMOL/L (21-32); CHLORIDE 104 MMOL/L (98-107); CREATINE KINASE 263 U/L (26-308); CREATININE 0.8 MG/DL (0.55-1.30); POTASSIUM 3.5 MMOL/L (3.5-5.1); SODIUM 140 MMOL/L (136-145)
[2019-09-17 07:20] LABS: BILIRUBIN,DIRECT 0.4 MG/DL (0.0-0.3)
--- NOTE | 2019-09-17 07:20 | NUR ---
NURSE NOTES: Lab called c/o Gladies regarding Troponin I 0.214. No signs of distress noted. Will endorsed to RN AM shift.
--- NOTE | 2019-09-17 07:25 | NUR ---
HAND-OFF: Report given to NAYELY Gallardo. Plan of care endorsed.
--- NOTE | 2019-09-17 07:30 | NUR ---
NURSE NOTES: Dr. Story at the nursing station made aware of troponin level today 0.214, no new order given at this time. Will continue to monitor.
--- NOTE | 2019-09-17 07:55 | NUR ---
NURSE NOTES: NURSE NOTES: Received report from NAYELY Doll. Patient in bed resting, no active s/s cardiac, respiratory distress noticed at this time. Patient AOX4, on room air, SR 98, denies pain at this time. IV on left AC 20G, asymptomatic, patent, intact, IV fluid running as prescribed rate. Endorsed patient schedule for US abd, NPO at this time. Bed in lowest position, side rails upx2, call light within reach. Will continue to monitor.
--- NOTE | 2019-09-17 08:15 | History and Physical Report ---
DATE OF ADMISSION: 09/16/2019 CHIEF COMPLAINT: Cough, congestion, shortness of breath, and elevated troponin. HISTORY OF PRESENT ILLNESS: The patient is a 59-year-old female. She has a history of hypertension and diabetes presented from home with complaints of two weeks of progressive cough, congestion, and shortness of breath. She has had subjective fevers and chills. On evaluation in the emergency room, she was noted to have elevated troponin of 0.212. She also had an elevated CK level 401. She was given breathing treatment. She has been started on intravenous steroids and is now admitted for further evaluation and care. PAST MEDICAL HISTORY: As above. PAST SURGICAL HISTORY: Includes shoulder surgery and a cholecystectomy. CURRENT MEDICATIONS: Reconciled and reviewed. ALLERGIES: None. FAMILY HISTORY: Significant for heart disease. SOCIAL HISTORY: Negative for tobacco, ethanol, or drugs. REVIEW OF SYSTEMS: Unremarkable except for cough, congestion, shortness of breath, fevers. PHYSICAL EXAMINATION: VITAL SIGNS: Temperature 97.7, pulse 62, respirations 18, and blood pressure 108/60. GENERAL: The patient is well developed, no apparent distress. HEART: Regular rate and rhythm. LUNGS: Significant for scattered rhonchi. ABDOMEN: Soft, nontender, nondistended. EXTREMITIES: Without clubbing, cyanosis, or edema. LABORATORY DATA: Sodium 138, potassium 2.8, creatinine was 0.8. White count 6. UA showed too numerous to count rbc's and 10 to 15 wbc's. Chest x-ray is clear. EKG showed sinus rhythm without any acute ST-T wave changes. ASSESSMENT: This is a 59-year-old female with diabetes, hypertension admitted with complaints of cough, congestion likely secondary to bronchitis. She also has not elevated troponin. PLAN: 1. Antiplatelet therapy with aspirin. 2. Continue outpatient cardiac regimen. 3. Repeat troponin in the morning. 4. Cardiology evaluation. 5. Check an echo. 6. Empiric antibiotic therapy for possible bronchitis and pneumonia. 7. Intravenous steroids, respiratory treatments [id number]. Berlin Story M.D. DR: Bre JOB#: [id number] CC:
[2019-09-17] MEDS: Solu-MEDROL 40mg Inj IVP SCH ×2 (08:34→21:07)
[2019-09-17] MEDS: Levofloxacin 500mg tab ORAL SCH (08:34)
[2019-09-17] MEDS: Atenolol 25mg tab ORAL SCH (08:35)
[2019-09-17] MEDS: Heparin 5000 units/ml inj SUBQ SCH ×2 (08:42→21:00)
--- NOTE | 2019-09-17 12:00 | NUR ---
NURSE NOTES: Patient has elevated blood pressure, refused IV insertion for prn IV blood pressure med, Vasotec. Will continue to monitor. Addendum: 09/17/19 at 1442 by GIOVANNY ROSS RN Wrong patient.
[2019-09-17] MEDS: NS w/KCl 20mEq 1000ml 1,000 ML IV SCH (12:07)
--- NOTE | 2019-09-17 12:18 | Diagnostic Imaging Report ---
Indication: Abdominal pain, abnormal liver function tests Technique: Geller-scale and duplex images of the upper abdomen were obtained Comparison: No comparison sonograms. Reference made to abdomen pelvis CT 03/17/2019 Findings: Gallbladder has been removed. Common bile duct measures 5 mm in diameter. No intrahepatic biliary ductal dilatation. Liver demonstrates increased echogenicity. It is somewhat enlarged. It demonstrates surface nodularity. No focal abnormality Portal vein and hepatic veins are patent. Pancreas is unremarkable. Spleen is unremarkable. Left kidney measures 12.9 cm in length. Right kidney measures 12.3 cm length. Both kidneys demonstrate normal echogenicity. There is no hydronephrosis. No focal abnormality . Abdominal aorta is partially obscured by bowel gas, visualized portions are non-aneurysmal . Impression: Status post cholecystectomy. Negative for dilated bile ducts Enlarged liver, with increased echogenicity suggestive of fatty infiltration or other hepatocellular disease Hepatic surface nodularity, suspicious for early cirrhotic changes. Note inability to visualize portions of the abdominal aorta
--- NOTE | 2019-09-17 14:10 | NUR ---
CASE MANAGEMENT:REVIEW 59 YR OLD FEMALE PRESENTED TO ER CC: PRODUCTIVE COUGH FOR SEVERAL WEEKS. FEVER AT HOME SI: ASTHMA EXACERBATION. ELEVATED TROPONIN 98.5 82 20 177/88 95% ON RA K-2.8 TROPONIN(+) 0.212 IS: DUONEB HHN ASA PO PROMETHAZINE PO IV ROCEPHIN K-DUR PO IV SOLUMEDROL IV MAG SULFATE BLOOD CX : TO TELEMETRY 09/17/19 SI: ASTHMA. ELEVATED TROPONIN 98.1 73 19 130/72 92% ON RA TROPONIN(+) 0.214 IS: NORVASC PO QD ATENOLOL PO QD LEVAQUIN PO QD HEPARIN SQ Q12 DUONEB HHN Q4HRS RTC IV SOLUMEDROL 40MG Q12 IVF+KCL@75/HR : TELEMETRY STATUS PLAN: CARDIAC EVAL PENDING 2DECHO
--- NOTE | 2019-09-17 15:08 | NUR ---
*-* INSURANCE *-* ALL AVAILABLE CLINICALS AND REVIEWS HAVE BEEN FAXED TO: [facility] REF# [id number] Work [phone] Work Fax NCM:JO
--- NOTE | 2019-09-17 19:35 | NUR ---
HAND-OFF: Report given to NAYELY Riley.
--- NOTE | 2019-09-17 19:45 | NUR ---
NURSE NOTES: Pt received from Paulina RN alert and oriented x4 with no acute s/s of distress noted. IV site asymptomatic and patent. Bed in lowest position, bed alarm on. Call light and belongings within reach.
[2019-09-18] MEDS: NS w/KCl 20mEq 1000ml 1,000 ML IV SCH (00:25)
[2019-09-18] MEDS: Albuterol/Ipratropium 3ml neb HHN SCH ×6 (03:51→23:11)
[2019-09-18 04:00] VITALS: BP 118/48
--- NOTE | 2019-09-18 04:00 | Consultation ---
DATE OF CONSULTATION: 09/16/2019 CARDIOLOGY CONSULTATION CONSULTING PHYSICIAN: Arden Todd M.D. REQUESTING PHYSICIAN: Berlin Story M.D. REASON FOR CONSULTATION: Elevated troponin level. HISTORY OF PRESENT ILLNESS: This is a 59-year-old female has a history of asthma and hypertension. She presented to the emergency room with two weeks of progressive cough, congestion, and shortness of breath with wheezing. She had some fevers and chills with sputum production. She had an elevated troponin level as well prompting this consultation. She denies chest pain. No known history of cardiovascular disease. PAST MEDICAL HISTORY: Type 2 diabetes mellitus, hypertension, asthma, prior cholecystectomy, prior shoulder surgeries. ALLERGIES: None. FAMILY HISTORY: Notable for premature coronary disease and hypertension as well as diabetes. SOCIAL HISTORY: Negative for smoking, alcohol, or substance abuse. MEDICATIONS: Reviewed and reconciled. REVIEW OF SYSTEMS: A 10-point review of systems performed, all systems negative other than noted above. PHYSICAL EXAMINATION: VITAL SIGNS: Afebrile, blood pressure 177/88, pulse 87, respirations 14, oxygen saturation on room air 99%. LUNGS: Scattered rhonchi. No wheezing. CARDIAC: Regular rhythm and rate. Normal S1, S2 with no murmur. ABDOMEN: Soft. EXTREMITIES: No edema. No calf tenderness. LABORATORY AND DIAGNOSTIC DATA: Labs are reviewed. EKG sinus rhythm with nonspecific T-wave abnormality. Chest x-ray with no acute process. White count 6.7, hemoglobin 13. Potassium 2.8. Lactic acid 1.9. Troponin 0.212. BUN 13, creatinine 0.8. CK is 401, CK-MB index is 0.9. Albumin 2.9. IMPRESSION: 1. Asthma exacerbation. 2. Viral upper respiratory infection. 3. Hypokalemia. 4. Acute myocardial ischemia and possible non-ST elevation infarction. 5. History of hypertension . 6. Moderate protein-calorie malnutrition. PLAN: 1. Replace potassium. 2. Bronchodilators. 3. Repeat troponin. 4. Anti-platelet therapy. 5. DVT prophylaxis. 6. Protein supplement. Arden Todd M.D. DR: ABDULLAHI JOB#: [id number] CC:
--- NOTE | 2019-09-18 04:15 | Progress Note ---
DATE: 09/17/2019 CARDIOLOGY PROGRESS NOTE SUBJECTIVE: The patient feels better, less congested. No chest pain. Anxious to go home. OBJECTIVE: VITAL SIGNS: Blood pressure 150/70, pulse 79, respirations 20, afebrile, oxygen saturation 95% to 99% on room air. LUNGS: No wheezing. CARDIAC: Regular rhythm and rate. Normal S1, S2. ABDOMEN: Soft. EXTREMITIES: No edema. LABORATORY DATA: Troponin #1 was 0.212, troponin #2 was 0.214. IMPRESSION: 1. No clinical signs of acute myocardial ischemia. 2. Elevated troponin levels, however raises concern of a coronary insufficiency. 3. CK levels overall normal yesterday. PLAN: 1. Recommend echocardiogram to evaluate for structural heart disease. 2. VQ scan to assess for possible pulmonary embolic events. 3. Continue bronchodilator therapy. 4. Discontinue IV fluids. 5. Resume anti-platelet therapy with aspirin. Arden Todd M.D. DR: ABDULLAHI JOB#: [id number] CC:
[2019-09-18] MEDS: NovoLOG Insulin Flexpen SUBQ SCH ×4 (06:17→20:41)
--- NOTE | 2019-09-18 07:00 | NUR ---
HAND-OFF: Report given to NAYELY Bush.
--- NOTE | 2019-09-18 07:07 | NUR ---
NURSE NOTES: HANDOFF RECEIVED FROM NAYELY SHAW. PATIENT RECEIVED SLEEPING IN BED, NO ACUTE SIGNS OF DISTRESS NOTED. PATIENT HAS LEFT FA IV SITE CLEAN DRY AND INTACT SALINE LOCKED. BED IN THE LOW AND LOCKED POSITION WITH CALL LIGHT WITHIN REACH, WILL CONTINUE TO MONITOR.
[2019-09-18 07:44] LABS: ALANINE AMINOTRANSFERASE 35 U/L (12-78); ALBUMIN 2.4 G/DL (3.4-5.0); ALBUMIN/GLOBULIN RATIO 0.5 (1.0-2.7); ALKALINE PHOSPHATASE 157 U/L (46-116); ANION GAP 7 mmol/L (5-15); ASPARTATE AMINO TRANSFERASE 37 U/L (15-37); BILIRUBIN,TOTAL 0.6 MG/DL (0.2-1.0); BLOOD UREA NITROGEN 19 mg/dL (7-18); CALCIUM 8.6 MG/DL (8.5-10.1); CARBON DIOXIDE 25 MMOL/L (21-32); CHLORIDE 106 MMOL/L (98-107); CHOLESTEROL 191 MG/DL (< 200); CKMB 2.3 NG/ML (0.0-3.6); CREATINE KINASE 177 U/L (26-308); CREATININE 0.8 MG/DL (0.55-1.30); HDL CHOLESTEROL 41 MG/DL (40-60); POTASSIUM 3.9 MMOL/L (3.5-5.1); SODIUM 138 MMOL/L (136-145); TRIGLYCERIDES 50 MG/DL (30-150)
[2019-09-18 08:00] VITALS: BP 145/79
[2019-09-18] MEDS: Solu-MEDROL 40mg Inj IVP SCH (08:31)
[2019-09-18] MEDS: Aspirin Baby 81mg ORAL SCH (08:32)
[2019-09-18] MEDS: Atenolol 25mg tab ORAL SCH (08:32)
[2019-09-18] MEDS: Levofloxacin 500mg tab ORAL SCH (08:33)
[2019-09-18] MEDS: Heparin 5000 units/ml inj SUBQ SCH ×2 (08:34→20:42)
--- NOTE | 2019-09-18 11:08 | NUR ---
NM Lung VQ Scan complete.
--- NOTE | 2019-09-18 11:29 | NUR ---
CASE MANAGEMENT:REVIEW 09/18/19 SI: BRONCHITIS. ELEVATED TROPONIN 98.4 76 19 145/79 95% ON RA TROPONIN(+) 0.198 IS: ASA PO QD NORVASC PO QD ATENOLOL PO QD PROTONIX PO Q12 LEVAQUIN PO QD DUONEB Q4HRS RTC IV SOLUMEDROL Q12 : TELEMETRY STATUS PLAN: 2DECHO VQ SCAN
--- NOTE | 2019-09-18 11:38 | Diagnostic Imaging Report ---
Indications: Shortness of breath, cough Technique: IV administration 5.5 mCi 99m technetium macroaggregated albumin. Images obtained over the lungs in multiple projections. Previously, patient inhaled 4. mCi aerosolized 99M technetium DTPA. Images obtained over the lungs in multiple projections Comparison: Reference made to most recent chest radiograph dated 09/16/2019 Findings: There is a perfusion defects involving much of the right upper lobe. However, there is a defect of similar size on the aerosol images in the same location. No other segmental or subsegmental perfusion defects are demonstrated. No evidence of aerosol/perfusion mismatch demonstrated. Impression: Matched right upper lobe defect. In retrospect, an area of infiltrate is visible on prior chest radiograph, likely responsible for such. Findings are deemed low probability for pulmonary embolus
[2019-09-18 12:00] VITALS: BP 144/73
--- NOTE | 2019-09-18 15:37 | General Progress Note ---
Assessment/Plan Problem List: (1) Community acquired bacterial pneumonia ICD Codes: J15.9 - Unspecified bacterial pneumonia SNOMED: 68546974, 512355251 (2) Exacerbation of asthma ICD Codes: J45.901 - Unspecified asthma with (acute) exacerbation SNOMED: 944321520 (3) Urinary tract infection ICD Codes: N39.0 - Urinary tract infection, site not specified SNOMED: 00553306 (4) Elevated troponin ICD Codes: R79.89 - Other specified abnormal findings of blood chemistry SNOMED: 788502639, 731999808, 748816732 (5) Asthma exacerbation ICD Codes: J45.901 - Unspecified asthma with (acute) exacerbation SNOMED: 048454864 Status: stable, progressing Assessment/Plan: a/ asthma exac pna elevated trop ?significance p/ iv abx wean steroids resp rx cards follow up Subjective ROS Limited/Unobtainable: No Constitutional: Reports: malaise, weakness HEENT: Reports: no symptoms Cardiovascular: Reports: no symptoms Respiratory: Reports: cough, shortness of breath, sputum, wheezing Gastrointestinal/Abdominal: Reports: no symptoms Genitourinary: Reports: no symptoms Neurologic/Psychiatric: Reports: no symptoms Endocrine: Reports: no symptoms Hematologic/Lymphatic: Reports: no symptoms Allergies: Coded Allergies: No Known Allergies (Unverified , 06/16/17) All Systems: reviewed and negative except above Subjective no events. decreased cough and congestion. v/q with matched defect. re-read of CXR shows pna. Objective Last 24 Hour Vital Signs Date Time Temp Pulse Resp B/P (MAP) Pulse Ox O2 Delivery O2 Flow Rate FiO2 09/18/19 12:00 98.3 67 19 144/73 (96) 97 09/18/19 12:00 57 09/18/19 11:18 68 20 99 Room Air 21 65 24 95 09/18/19 09:05 75 20 98 Room Air 21 77 24 96 09/18/19 09:00 Room Air 09/18/19 08:32 76 145/79 09/18/19 08:32 76 145/79 09/18/19 08:00 75 09/18/19 08:00 98.4 76 19 145/79 (101) 95 09/18/19 04:00 73 09/18/19 04:00 98.2 82 17 118/48 (71) 95 09/18/19 03:52 66 18 99 Room Air 21 62 18 97 09/18/19 00:00 75 09/17/19 23:51 98.8 79 18 137/75 (95) 94 09/17/19 23:26 80 18 100 Room Air 21 77 18 95 09/17/19 21:00 Room Air 09/17/19 20:00 82 09/17/19 20:00 98.6 83 20 146/71 (96) 94 09/17/19 19:56 83 18 100 Room Air 21 78 18 95 09/17/19 16:00 98.6 81 18 150/70 (96) 96 09/17/19 16:00 70 Intake and Output 09/17/19 09/18/19 19:00 07:00 Intake Total 280 ml 520 ml Output Total 950 ml Balance -670 ml 520 ml Intake Oral 280 ml 220 ml IV Total 300 ml Output Urine Total 950 ml # Voids 3 2 Laboratory Tests 09/18/19 06:25: Sodium Level 138, Potassium Level 3.9, Chloride Level 106, Carbon Dioxide Level 25, Anion Gap 7, Blood Urea Nitrogen 19H, Creatinine 0.8, Estimat Glomerular Filtration Rate > 60, Glucose Level 246H, Calcium Level 8.6, Total Bilirubin 0.6 , Aspartate Amino Transf (AST/SGOT) 37, Alanine Aminotransferase (ALT/SGPT) 35, Alkaline Phosphatase 157H, Total Creatine Kinase 177, Creatine Kinase MB 2.3, Creatine Kinase MB Relative Index 1.2, Troponin I 0.198H, Total Protein 7.1, Albumin 2.4L, Globulin 4.7, Albumin/Globulin Ratio 0.5L, Triglycerides Level 50 , Cholesterol Level 191, LDL Cholesterol 142H, HDL Cholesterol 41, Cholesterol/ HDL Ratio 4.7H, Thyroid Stimulating Hormone (TSH) 1.783, Hepatitis B Surface Antigen [Pending], Hepatitis B Surface Antibody, Quant [Pending], Hepatitis C Antibody [Pending] Height (Feet): 5 Height (Inches): 3.00 Weight (Pounds): 200 General Appearance: WD/WN Neck: supple Cardiovascular: regular rhythm Respiratory/Chest: rhonchi - bilaterally Abdomen: normal bowel sounds, non tender, soft, no organomegaly Edema: no edema noted Arm (L), no edema noted Arm (R), no edema noted Leg (L), no edema noted Leg (R), no edema noted Pedal (L), no edema noted Pedal (R), no edema noted Generalized [place] Story MD Sep 18, 2019 15:37
--- NOTE | 2019-09-18 15:43 | NUR ---
*-* INSURANCE *-* ALL AVAILABLE CLINICALS AND REVIEWS HAVE BEEN FAXED TO: [facility] REF# [id number] Work [phone] Work Fax NCM:JO
[2019-09-18 16:00] VITALS: BP 147/77
[2019-09-18] MEDS: cefTRIAXone 1 GM in D5W 55 ML IVPB SCH (16:33)
--- NOTE | 2019-09-18 19:28 | NUR ---
HAND-OFF: Report given to NAYELY SHAW.
--- NOTE | 2019-09-18 19:31 | NUR ---
NURSE NOTES: Pt received from NAYELY Bush alert and oriented x4, primarily Khmer-speaking. Daughter at bedside. IV site asymptomatic and patent, L fa 20g, saline lock. Bed in lowest position, call light and belongings within reach.
[2019-09-18 20:00] VITALS: BP 144/74
[2019-09-19] VITALS: BP 147/78
[2019-09-19] MEDS: Albuterol/Ipratropium 3ml neb HHN SCH ×3 (03:38→12:02)
[2019-09-19 04:00] VITALS: BP 151/76
--- NOTE | 2019-09-19 05:15 | Progress Note ---
DATE: 09/18/2019 CARDIOLOGY PROGRESS NOTE SUBJECTIVE: The patient has decreased cough and congestion. Chest x-ray reveals pneumonia. V/Q scan with low probability pulmonary embolus, but had a matched defect. The patient's troponin levels remained elevated at low range, but CK-MB and index are negative. OBJECTIVE: LUNGS: Coarse breath sounds. Few wheezes. CARDIAC: Regular rhythm and rate. Normal S1 and S2. ABDOMEN: Soft. EXTREMITIES: No edema. IMPRESSION: 1. Pneumonia. 2. Asthma exacerbation. 3. Elevated troponin, likely reflective of microvascular disease or false positive. At this time, there is no evidence of an acute myocardial infarction. RECOMMENDATIONS: 1. Optimize pulmonary parameters with bronchodilators, antimicrobials, and respiratory hygiene. 2. Continue anti-platelet therapy. 3. Outpatient assessment of coronary flow reserve to follow once pulmonary infection and asthma exacerbation have recovered. Arden Todd M.D. DR: EDMUND JOB#: [id number] CC:
[2019-09-19] MEDS: NovoLOG Insulin Flexpen SUBQ SCH ×2 (06:14→12:19)
--- NOTE | 2019-09-19 07:15 | NUR ---
NURSE NOTES: Report received from NAYELY Riley. Patient in RA. AOx4. Denies SOB. Complained about pain when coughing rating it 6/10. Denies need of medication. Having breakfast. IV flushed, SL. Bed on lowest position, side rails upx2, brakes engaged. Call light within easy reach.
--- NOTE | 2019-09-19 07:15 | NUR ---
HAND-OFF: Report given to NAYELY Mcmillan. Plan of care endorsed.
--- NOTE | 2019-09-19 07:20 | NUR ---
NURSE NOTES: Dr Story gave patient discharge instructions and teaching. Pt. verbalized understanding. Liberian speaking RN was used.
[2019-09-19 08:00] VITALS: BP 155/81
[2019-09-19] MEDS ORDERED: Solu-MEDROL 40mg Inj IVP SCH (09:00)
[2019-09-19] MEDS: Heparin 5000 units/ml inj SUBQ SCH (09:00)
[2019-09-19] MEDS: Levofloxacin 500mg tab ORAL SCH (09:13)
[2019-09-19] MEDS: Aspirin Baby 81mg ORAL SCH (09:13)
[2019-09-19] MEDS: cefTRIAXone 1 GM in D5W 55 ML IVPB SCH (09:14)
[2019-09-19] MEDS: Atenolol 25mg tab ORAL SCH (09:14)
[2019-09-19 12:00] VITALS: BP 139/75
--- NOTE | 2019-09-19 12:55 | NUR ---
NURSE NOTES: Pt. VS stable. Discharge teaching done. New medications prescription given. Patient verbalized understanding to follow up with primary MD and get a f/u chest x-ray as well. Discharge package printed in Turkish and given. Belongings checked, signed and filed. IV removed, intact. Name band removed. air sampling and monitoring removed.
[2019-09-19] MEDS ORDERED: Tubing IV Secondary IV ONE (12:57)
[2019-09-19] MEDS ORDERED: NS 275ml ONE (12:57)
--- NOTE | 2019-09-19 19:49 | Cardiology Report ---
APPROVED REPORT EXAM: Two-dimensional and M-mode echocardiogram with Doppler and color Doppler. M-Mode DIMENSIONS IVSd1.3 (0.7-1.1cm)Left Atrium (MM)3.8 (1.6-4.0cm) LVDd4.2 (3.5-5.6cm)Aortic Root3.8 (2.0-3.7cm) PWd1.0 (0.7-1.1cm)Aortic Cusp Exc.1.7 (1.5-2.0cm) IVSs1.4 cm LVDs2.1 (2.5-4.0cm) PWs1.5 cm Technically difficult study due to pts body habitus . Normal left ventricular chamber size, systolic function and wall motion to extent visualized. Left ventricular ejection fraction estimated to be 60-65%. No evidence left ventricular hypertrophy. Anterior Echo-free space, may be due to pericardial fat or effusion. Left atrial size at upper limits of normal. Right cardiac chamber sizes are within normal limits. Aortic valve calcification with normal cusp excursion . Mildly thickened mitral valve leaflets with normal excursion. Mild mitral annulus and aortic root calcification. Pulmonic valve not well visualized. IVC dilated at 2.3 cm with slightly collapse suggestive of increased RA pressure. A color flow and spectral Doppler study was performed and revealed: No aortic insufficiency .PG 16 mmhg adn MG 8 mmhg across the aortic valve Mitral diastolic velocities suggest reduced left ventricular relaxation c/w mild LV diastolic dysfunction (Grade I ) Trace mitral regurgitation. Trace tricuspid regurgitation. Tricuspid systolic velocities suggests peak right ventricular systolic pressure of 29mmHg
--- NOTE | 2019-09-19 22:30 | Progress Note ---
DATE: 09/19/2019 CARDIOLOGY PROGRESS NOTE SUBJECTIVE: The patient still has some cough and chest pain upon coughing. Less short of breath. He is anxious to go home. OBJECTIVE: VITAL SIGNS: Blood pressure 139/75, earlier 155/81, heart rate 62, respiratory rate 17, afebrile. LUNGS: With coarse breath sounds. No wheezing. Few rhonchi. HEART: Regular rhythm rate. Normal S1, S2 with a fourth heart sound. ABDOMEN: Soft, nontender. EXTREMITIES: No edema. The patient had a V/Q scan that was low probability. IMPRESSION: 1. Pneumonia. 2. Asthma exacerbation. 3. Elevated troponin level suggesting microvascular disease. This is a false positive result, but little likelihood of any acute myocardial infarction. RECOMMENDATIONS: 1. Complete recovery from acute pulmonary processes at home. 2. Continue anti-platelet therapy with aspirin. 3. Outpatient exercise myocardial perfusion scan once pulmonary parameters have recovered to baseline. 4. Return to emergency room should any changes in condition such as chest pressure or significant shortness of breath ensued. Arden Todd M.D. DR: SULAIMAN JOB#: [id number] CC:
--- NOTE | 2019-09-19 23:00 | Discharge Summary ---
DATE OF ADMISSION: 09/16/2019 DATE OF DISCHARGE: 09/19/2019 ADMISSION DIAGNOSES: 1. Bronchitis. 2. Possible pneumonia. 3. Elevated troponin, rule out acute coronary syndrome. 4. Hypertension. 5. Possible asthma. DISCHARGE DIAGNOSES: 1. Bronchitis. 2. Possible pneumonia. 3. Elevated troponin, rule out acute coronary syndrome. 4. Hypertension. 5. Possible asthma. HOSPITAL COURSE: The patient is a pleasant 59-year-old female, who presented with complaints of cough, congestion, fevers, chills, and myalgias for 2 weeks. She was diagnosed with a possible bronchitis and chronic obstructive pulmonary disease/asthma exacerbation. She received intravenous steroids and antibiotic therapy. She had an elevated troponin. It was felt to be unlikely cardiac related. Cardiology consultation was obtained. The patient was placed on antiplatelet therapy. On discharge, she was stable and she will be discharged home on a steroid taper. She has been instructed to follow up with her primary care doctor for a possible stress test as an outpatient. She received antibiotic therapy. Of note, she had a venous duplex that was negative. She had a ventilation/perfusion scan, which showed a mass defect and on further review of x-ray, there was possibly a pneumonia there. The patient did receive 2 days of IV antibiotic therapy and clinically had improved significantly. She will be discharged to complete another week of antibiotics. DISCHARGE MEDICATIONS: Please see discharge medication list for discharge medications. DIET: Cardiac diet. ACTIVITIES: Ad-shy. [place] Story M.D. DR: ASHA JOB#: [id number] CC:
--- NOTE | 2019-09-20 19:41 | Cardiology Report ---
APPROVED REPORT EKG Measurement Heart [id number] NV [id number] [id number] Normal sinus rhythm Nonspecific T wave abnormality Prolonged QT Abnormal ECG
== END 2019-09-19 12:58 | disposition home or self-care (01) | DRG 140 ==
LOC: EMR 17:52 → 2E 20:40 → EDBEDREQ 20:53
DX: J44.0 Chronic obstructive pulmonary disease with (acute) lower respiratory infection (principal); J40 Bronchitis, not specified as acute or chronic; J18.9 Pneumonia, unspecified organism; J44.1 Chronic obstructive pulmonary disease with (acute) exacerbation; N39.0 Urinary tract infection, site not specified; R79.89 Other specified abnormal findings of blood chemistry; E87.6 Hypokalemia; E44.0 Moderate protein-calorie malnutrition; Z68.35 Body mass index [BMI] 35.0-35.9, adult; E11.9 Type 2 diabetes mellitus without complications
CPT/HCPCS: 36415; 71045; 76700; 78579; 78580; 80053; 80061; 81003; 82248; 82550; 82553; 82962; 83605; 83690; 83880; 84443; 84484; 85025; 86710; 86803; 87040; 87086; 87181; 87340; 87517; 93005; 93306; 94640; 96365; 96367; 96375; 99285; A9503; J1815; J7620; J8499